=== PATIENT | male | born 1960 | race American Indian/Alaskan Native ===

== ENCOUNTER 2016-10-06 13:23 | Inpatient (IN) | payer MEDICAID ==
[2016-10-06 13:23] VITALS: BMI 24.3
[2016-10-06] MEDS ORDERED: Albuterol-Ipratrop 3 mg / 0.5 (3 ml) UD ONE ×2 (13:35→14:53)
--- NOTE | 2016-10-06 14:05 | C.PDOC ---
History Of Present Illness 55-year-old male, PMHx includes Arthritis, Asthma, Bronchitis, COPD, Hypertension, Hypercholesterolemia, and Pulmonary Embolism, presents to the emergency department with complaints of Asthma exacerbation. Patient states he had a duoneb prior to arrival. States he feels like his "throat is closing up" Patient reports he uses medication, that he did not have at the time. Denies nausea/vomiting, fevers, chills, chest pain, back pain or any other associated symptoms. No other complaints at this time. Time Seen by Provider: 10/06/16 13:48 Chief Complaint (Nursing): Shortness Of Breath History Per: Patient History/Exam Limitations: no limitations Onset/Duration Of Symptoms: Hrs Current Symptoms Are (Timing): Still Present Past Medical History Reviewed: Historical Data, Nursing Documentation, Vital Signs Vital Signs: Last Vital Signs Temp 98 F 10/06/16 13:25 Pulse 81 10/06/16 15:15 Resp 12 10/06/16 15:15 BP 140/72 10/06/16 15:15 Pulse Ox 99 10/06/16 16:14 - Medical History PMH: Arthritis, Asthma, Bronchitis, COPD, HTN, Hypercholesterolemia, Pulmonary Embolism Denies: Alzheimer's Disease, Anemia, Atrial Fibrillation, CAD, Cardia Arrhythmia, CHF, Dementia, Emphysema, HIV, Hyperthyroidism, Hypothyroidism, Kidney Stones, Migraine, Mitral Valve Prolapse, Multiple Sclerosis, Parkinson's Disease, Peripheral Edema, Pneumonia, Chronic Kidney Disease, Seizures, Sickle Cell Disease, Sleep Apnea, TIA Surgical History: Hernia Repair Denies: Pacemaker - [facility] Procedures INSERTION OF INTRALUM DEV INTO INF VENA CAVA, PERC APPROACH (08/29/15) INTRODUCE OF OTH THERAP SUBST INTO RESP TRACT, VIA OPENING (06/07/15) INTRODUCTION OF SERUM/TOX/VACCINE INTO MUSCLE, PERC APPROACH (09/11/16) NEBULIZER THERAPY (02/27/15) Family History: States: Unknown Family Hx - Social History Hx Tobacco Use: Yes Hx Alcohol Use: Yes (occasional) Hx Substance Use: Yes (heroin) - Immunization History Hx Tetanus Toxoid Vaccination: Yes Hx Influenza Vaccination: Yes Hx Pneumococcal Vaccination: Yes Review Of Systems Except As Marked, All Systems Reviewed And Found Negative. Constitutional: Negative for: Fever, Chills Cardiovascular: Negative for: Chest Pain, Palpitations Respiratory: Positive for: Shortness of Breath Gastrointestinal: Negative for: Nausea, Vomiting Musculoskeletal: Negative for: Back Pain Skin: Negative for: Rash Neurological: Negative for: Weakness, Numbness, Headache, Dizziness Physical Exam - Physical Exam Appears: Non-toxic, No Acute Distress Skin: Warm, Dry, No Rash Head: Atraumatic, Normacephalic Eye(s): bilateral: Normal Inspection, PERRL Nose: Normal Oral Mucosa: Moist Lips: Normal Appearing Neck: Normal ROM Chest: Symmetrical Cardiovascular: Rhythm Regular Respiratory: Other (B/L EXP WHEEZE) Extremity: Normal ROM Neurological/Psych: Oriented x3, Normal Speech ED Course And Treatment - Laboratory Results Result Diagrams: 10/06/16 14:57 10/06/16 14:57 ECG: Interpreted By Me ECG Rhythm: Sinus Rhythm ECG Interpretation: Normal Rate From EC O2 Sat by Pulse Oximetry: 99 Pulse Ox Interpretation: Normal Progress - Re-Evaluation Re-evaluation Note: 10/06/16 16:08 93%RA. MILD IMPROVE. PMD @ [facility] 10/06/16 16:41 D/W DR GARCIA [employer] WILL ADMIT - Data Reviewed Data Reviewed: Lab, Diagnostic imaging, Old records - Continuity of Care Discussed patient case with:: Patient, On-call PMD-pt unassigned Disposition Counseled Patient/Family Regarding: Studies Performed, Diagnosis - Disposition Disposition: HOSPITALIZED Disposition Time: 16:41 Condition: STABLE - POA Present On Arrival: None - Clinical Impression Clinical Impression: COPD with exacerbation, Dyspnea, Pneumonia - Scribe Statement The provider has reviewed the documentation as recorded by the Brittani Maguire All medical record entries made by the Nyaibe were at my direction and personally dictated by me. I have reviewed the chart and agree that the record accurately reflects my personal performance of the history, physical exam, medical decision making, and the department course for this patient. I have also personally directed, reviewed, and agree with the discharge instructions and disposition. Decision To Admit - Pt Status Changed To: Hospital Disposition Of: Observation - . Bed Request Type: Regular Admitting Physician: Sandi Patterson Patient Diagnosis: COPD with exacerbation, Dyspnea, Pneumonia
[2016-10-06] MEDS ORDERED: MethylPREDNISolone 40 mg Vial ONE (14:51)
[2016-10-06] MEDS: Albuterol-Ipratrop 3 mg / 0.5 (3 ml) UD IH SCH ×2 (14:56→15:13)
--- NOTE | 2016-10-06 15:02 | RAD ---
HISTORY: SOB COMPARISON: Chest x-ray performed 06/30/16 TECHNIQUE: Chest, one view. FINDINGS: LUNGS: Mild bibasilar opacity likely subsegmental atelectasis. Please note that chest x-ray has limited sensitivity for the detection of pulmonary masses. PLEURA: No significant pleural effusion identified. No definite pneumothorax . CARDIOVASCULAR: The cardiomediastinal silhouette appears within normal limits of size. OSSEOUS STRUCTURES: No acute osseous abnormality identified. VISUALIZED UPPER ABDOMEN: Unremarkable. OTHER FINDINGS: None. IMPRESSION: Mild right basilar opacity likely subsegmental atelectasis.
[2016-10-06 15:10] LABS: BASO % 0.2 % (0.0-2.0); EOS # 0.1 K/uL (0.0-0.7); EOS % 0.8 % (0.0-4.0); HEMATOCRIT 33.5 % (35.0-51.0); LYMPH % 12.3 % (20.0-40.0); MEAN CORPUSCULAR HEMOGLOBIN 27.7 pg (27.0-31.0); MEAN CORPUSCULAR HGB CONC 31.8 g/dL (33.0-37.0); MEAN PLATELET VOLUME 9.1 fL (7.2-11.7); MONO # 0.7 K/uL (0.0-0.8); MONO % 8.7 % (0.0-10.0)
[2016-10-06 15:11] LABS: WHITE BLOOD COUNT 8.2 K/uL (4.8-10.8)
[2016-10-06 15:12] LABS: CHLORIDE 95 mmol/L (98-107); POTASSIUM 4.2 mmol/L (3.6-5.2); SODIUM 139 mmol/L (132-148)
[2016-10-06 15:14] LABS: BILIRUBIN,TOTAL 0.2 mg/dL (0.2-1.3); CARBON DIOXIDE 31 mmol/L (22-30); GFR AFRICAN-AMERICAN > 60
[2016-10-06 15:15] LABS: ALB/GLOB RATIO 1.3 (1.0-2.1); ALKALINE PHOSPHATASE 72 U/L (38-126); ALT/SGPT 18 U/L (21-72); AST/SGOT 20 U/L (17-59); BLOOD UREA NITROGEN 19 mg/dL (9-20); CALCIUM 8.8 mg/dl (8.6-10.4); GLUCOSE,RANDOM 108 mg/dL (75-110); TOTAL PROTEIN 7.3 g/dL (6.3-8.3)
[2016-10-06] MEDS ORDERED: cefTRIAXone IV 1 gm in Dextros 50 ML IV STA (16:10)
[2016-10-06] MEDS ORDERED: Azithromycin 500 MG in Sodium Chloride 0.9% 250 ML IV STA (16:10)
[2016-10-06] MEDS ORDERED: cefTRIAXone IV 1 gm in Dextros 50 ML IVPB ONE (16:30)
[2016-10-06] MEDS ORDERED: Azithromycin 500mg/250ML NS 250 ML IVPB ONE (16:31)
[2016-10-06] MEDS: Albuterol-Ipratrop 3 mg / 0.5 (3 ml) UD INH SCH (19:26)
[2016-10-06] MEDS: Fluticasone-Salmeterol 100-50mcg Diskus INH SCH (19:29)
[2016-10-07] MEDS: Albuterol-Ipratrop 3 mg / 0.5 (3 ml) UD INH SCH ×4 (02:01→19:29)
--- NOTE | 2016-10-07 11:38 | CP.PCM.PN ---
Subjective - Date & Time of Evaluation Date of Evaluation: 10/07/16 Time of Evaluation: 11:45 - Subjective Subjective: H&P dictated # [id number] Objective - Vital Signs/Intake and Output Vital Signs (last 24 hours): Temp Pulse Resp BP Pulse Ox 97.4 F L 66 20 160/85 H 97 10/07/16 08:00 10/07/16 08:00 10/07/16 08:00 10/07/16 08:00 10/07/16 08:00 - Medications Medications: Current Medications Albuterol/Ipratropium (Duoneb 3 Mg/0.5 Mg (3 Ml) Ud) 3 ml INH RQ6 [facility] Last Admin: 10/07/16 07:39 Dose: 3 ml Amlodipine Besylate (Norvasc) 5 mg PO DAILY [facility] Last Admin: 10/07/16 10:15 Dose: 5 mg Apixaban (Eliquis) 5 mg PO BID [facility] Last Admin: 10/07/16 10:14 Dose: 5 mg Hydralazine HCl (Apresoline) 10 mg IVP STAT [facility] Pneumococcal Polyvalent Vaccine (Pneumovax 23 Vaccine) 0.5 ml IM .ONCE ONE Stop: 10/08/16 10:01 Fluticasone/Salmeterol (Advair Diskus 100/50) 1 puff INH RQ12 [facility] Last Admin: 10/06/16 19:29 Dose: Not Given
--- NOTE | 2016-10-07 11:46 | CP.PCM.CON ---
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 The patient notes to chest wall tightness and shortness of breath which he reports are similar to prior COPD exacerbations. He continued to smoke. He notes to improvement in his symptoms with nebulizer treatments. He is compliant with his anticoagulation. Past medical history: Recurrent DVT/PE, COPD Past surgical history: None Family history: Denies hematologic and oncologic problems Social history: 1ppd x 40 years, denies tobacco. Allergies: NKA Review of systems including HEENT, cardiovascular, respiratory, gastrointestinal , genitourinary, musculoskeletal, dermatologic, neurologic, and psychiatric are negative unless mentioned in the HPI. Past Patient History - Infectious Disease Hx of Infectious Diseases: None - Past Medical History & Family History Past Medical History?: Yes - Past Social History Smoking Status: Former Smoker - CARDIAC Hx Atrial Fibrillation: No Hx Cardia Arrhythmia: No Hx Congestive Heart Failure: No Hx Hypercholesterolemia: Yes Hx Hypertension: Yes Hx Mitral Valve Prolapse: No Hx Pacemaker: No Hx Peripheral Edema: No - PULMONARY Hx Asthma: Yes Hx Bronchitis: Yes Hx Chronic Obstructive Pulmonary Disease (COPD): Yes Hx Emphysema: No Hx Pneumonia: No Hx Pulmonary Embolism: Yes Hx Sleep Apnea: No - NEUROLOGICAL Hx Alzheimer's Disease: No Hx Dementia: No Hx Migraine: No Hx Multiple Sclerosis: No Hx Parkinson's Disease: No Hx Seizures: No Hx Transient Ischemic Attacks (TIA): No - HEENT Hx HEENT Problems: No - RENAL Hx Chronic Kidney Disease: No Hx Kidney Stones: No - ENDOCRINE/METABOLIC Hx Hyperthyroidism: No Hx Hypothyroidism: No - HEMATOLOGICAL/ONCOLOGICAL Hx Anemia: No Hx Human Immunodeficiency Virus (HIV): No Hx Sickle Cell Disease: No - INTEGUMENTARY Hx Dermatological Problems: No Other/Comment: skin very dry - MUSCULOSKELETAL/RHEUMATOLOGICAL Hx Falls: No - GASTROINTESTINAL Hx Gastrointestinal Disorders: Yes Other/Comment: hernia repair- left - GENITOURINARY/GYNECOLOGICAL Hx Genitourinary Disorders: No - PSYCHIATRIC Hx Substance Use: No - SURGICAL HISTORY Hx Surgeries: Yes Hx Herniorrhaphy: Yes (left) Other/Comment: collapsed lung - ANESTHESIA Hx Anesthesia: Yes Hx Anesthesia Reactions: No Hx Malignant Hyperthermia: No Meds Allergies/Adverse Reactions: Allergies Allergy/AdvReac Type Severity Reaction Status Date / Time No Known Allergies Allergy Verified 10/06/16 13:24 - Medications Medications: Current Medications Albuterol/Ipratropium (Duoneb 3 Mg/0.5 Mg (3 Ml) Ud) 3 ml INH RQ6 [facility] Last Admin: 10/07/16 07:39 Dose: 3 ml Amlodipine Besylate (Norvasc) 5 mg PO DAILY [facility] Last Admin: 10/07/16 10:15 Dose: 5 mg Apixaban (Eliquis) 5 mg PO BID [facility] Last Admin: 10/07/16 10:14 Dose: 5 mg Hydralazine HCl (Apresoline) 10 mg IVP STAT [facility] Pneumococcal Polyvalent Vaccine (Pneumovax 23 Vaccine) 0.5 ml IM .ONCE ONE Stop: 10/08/16 10:01 Fluticasone/Salmeterol (Advair Diskus 100/50) 1 puff INH RQ12 [facility] Last Admin: 10/06/16 19:29 Dose: Not Given Physical Exam - Head Exam Head Exam: ATRAUMATIC - Eye Exam Eye Exam: Normal appearance - ENT Exam ENT Exam: Mucous Membranes Dry - Respiratory Exam Respiratory Exam: Wheezes - Cardiovascular Exam Cardiovascular Exam: +S1, +S2 - GI/Abdominal Exam GI & Abdominal Exam: Normal Bowel Sounds - Extremities Exam Extremities exam: Positive for: pedal edema - Neurological Exam Neurological exam: Oriented x3 - Psychiatric Exam Psychiatric exam: Normal Affect, Normal Mood - Skin Skin Exam: Warm Results - Vital Signs Recent Vital Signs: Last Vital Signs Temp 97.4 F L 10/07/16 08:00 Pulse 66 10/07/16 08:00 Resp 20 10/07/16 08:00 BP 160/85 H 10/07/16 08:00 Pulse Ox 97 10/07/16 08:00 - Labs Result Diagrams: 10/06/16 14:57 10/06/16 14:57 Labs: Laboratory Results - last 24 hr 10/07/16 07:06 POC Glucose (mg/dL) 122 H Assessment & Plan (1) Deep vein thrombosis Assessment and Plan: recurrent with PE IVC filter placed in 2016 B/L DVT in 08/2016 currently on Eliquis for life no factor V leiden or prothrombin gene mutation, no antiphospholipid Ab positivity Status: Acute (2) Anemia Assessment and Plan: prior work up consistent with chronic disease Thank you for this interesting consult. Status: Acute
[2016-10-07] MEDS: MethylPREDNISolone 40 mg Vial IVP SCH ×2 (13:19→21:12)
--- NOTE | 2016-10-07 13:39 | RAD ---
HISTORY: f/u ? infiltrate vs atelectasis COMPARISON: Chest x-ray performed 10/06/16, CTA chest performed 08/29/15 TECHNIQUE: Chest PA and lateral FINDINGS: LUNGS: Subtle retrocardiac opacity may reflect atelectasis or pneumonia. Please note that chest x-ray has limited sensitivity for the detection of pulmonary masses. PLEURA: No significant pleural effusion identified. No definite pneumothorax . CARDIOVASCULAR: Heart size appears within normal limits. Atherosclerotic calcifications of the aorta. OSSEOUS STRUCTURES: No acute osseous abnormality identified. VISUALIZED UPPER ABDOMEN: Unremarkable. OTHER FINDINGS: None. IMPRESSION: Subtle retrocardiac opacity may reflect atelectasis or pneumonia. Recommend CT follow-up upon completion of treatment in order to ensure complete resolution.
[2016-10-07] MEDS: Fluticasone-Salmeterol 100-50mcg Diskus INH SCH ×2 (13:50→19:28)
[2016-10-07] MEDS: Tiotropium 18 mcg Cap For Inhalation IH SCH (13:50)
--- NOTE | 2016-10-07 18:34 | HP ---
CHIEF COMPLAINT: Progressive worsening of shortness of breath associated with a cough with clear sputum, progressively getting worse over the past 2 days. HISTORY OF PRESENT ILLNESS: The patient is a 55-year-old male with a history of arthritis, COPD, hypertension, hyperlipidemia, prior history of bilateral DVT , PE, status post IVC filter placement, who was admitted to [facility] 2 months ago for recurrent DVTs, was started on Eliquis for DVT. The patient was readmitted to [facility] on 09/11 for COPD exacerbation. He was found to be having bilateral lower extremity DVT and he was given 4 doses of therapeutic doses of Lovenox and Eliquis was held. Once the patient is stabilized, the patient was switched back to Eliquis and discharged on . The patient was evaluated in [facility] on 10/04 for possible altered mental status from substance abuse, and on 10/03, the patient was placed on observation in [place] and the patient was observed. Once the patient's mental status improved after his treatment, the patient was discharged home and advised the patient to follow up with PMD. The patient returning to [facility] ED yesterday for worsening symptoms of shortness of breath and cough for the past 2 days. In the ED, the patient was given nebulizer treatment, and he was still getting out of breath on exertion. The patient is being admitted for further management. Next, when I examined the patient, he denies any headaches, dizziness. Denies any chest pain, but complaining of shortness of breath on exertion and on walking to the bathroom. Denies any fever, but complaining of cough with whitish sputum. Denies any other associated symptoms. Denies any nausea, vomiting, abdominal pain, diarrhea or constipation. Denies any urinary complaints. Denies any other neurologic symptoms. PAST MEDICAL HISTORY: COPD, hypertension, history of arthritis, bilateral DVT, PE, and recurrent DVT. PAST SURGICAL HISTORY: Had a hernia repair and IVC filter placement. FAMILY HISTORY: Osteoarthritis in mother. PERSONAL HISTORY: He is single, not having any children, currently unemployed and disabled secondary to his hip osteoarthritis, uses a walker to walk around. SOCIAL HISTORY: She smokes 1 pack per day for the past 40 years. Does not drink alcohol, but uses heroin, last use was prior to coming to the hospital. ALLERGIES: No known drug allergies. HOME MEDICATIONS: Include prednisone 5 mg daily, Spiriva 18 mcg daily, Levaquin , Advair 1 puff inhalation, Eliquis 5 mg p.o. b.i.d. REVIEW OF SYSTEMS: As described in history of present illness. All other systems reviewed and were found to be negative. PHYSICAL EXAMINATION: GENERAL: Middle-aged male lying in bed in no acute distress. VITAL SIGNS: Blood pressure 151/88, pulse 72, respirations 20, temperature 98.1 degrees Fahrenheit, O2 sats 95% on 2 liters nasal cannula. HEENT: Pupils equal, round, reacting to light and accommodation. Extraocular muscles intact. No icterus, no pallor. No oral thrush. No pharyngeal congestion. NECK: Supple. No JVD. LUNGS: Bilateral vesicular breath sounds, decreased breath sounds at bases. Occasional wheezing heard. CARDIOVASCULAR: S1, S2 present, regular. ABDOMEN: Soft, nontender. Bowel sounds present. No guarding, no rigidity, no rebound tenderness noted. CENTRAL NERVOUS SYSTEM: Alert, awake, oriented x 3. No focal deficits noted. EXTREMITIES: 1-2+ pitting edema. Palpable peripheral pulses. LABORATORY DATA: Labs done from ED: WBC 8.2, hemoglobin 10.7, hematocrit 33.5 , platelets 298. Sodium 139, potassium 4.2, chloride 95, bicarbonate 31, BUN 19 , creatinine 0.9, glucose 108, calcium 8.8, AST 20, ALT 18, alkaline phosphatase 72. Cardiac enzymes x 1 negative. BNP is 512. Total protein 7.3, albumin 4.2, globulin 3.1. Chest x-ray: Mild right basilar opacity, likely subsegmental atelectasis. EKG from the ED shows normal sinus rhythm at 77 beats per minute, LVH, and poor R-wave progression. ASSESSMENT AND PLAN: Middle-aged male with history of COPD, hypertension, arthritis, bilateral DVT and PE admitted to [facility] for recurrent PE, on Eliquis and prednisone tapering doses, came into the ED for worsening symptoms of shortness of breath on exertion and the patient is being admitted for COPD exacerbation. The patient underwent echocardiogram at [facility] on 09/11, which shows left ventricle is normal size, normal left ventricular wall thickness, normal LV segmental wall motion, left ventricle systolic function is normal, ejection fraction of 65%-70%, left ventricular diastolic function is normal, mild to moderate tricuspid regurgitation, mild to moderate pulmonary hypertension. 1. Chronic obstructive pulmonary disease exacerbation. 2. Recurrent DVT on Eliquis. 3. History of hypertension. 4. History of arthritis. 5. Lower extremity edema with normal LV function, mild to moderate pulmonary hypertension. 6. Substance abuse. PLAN: The patient is being admitted to the regular floor. The patient received Solu-Medrol and antibiotics in the ED. Chest x-ray is most likely consistent with atelectasis. We will repeat a chest x-ray. I do not think patient has any infiltrate or pneumonia, but will repeat a chest x-ray and follow accordingly. I will obtain pulmonary evaluation to determine the need for home oxygen. We will obtain physical therapy evaluation. We will continue with Norvasc 5 mg daily for high blood pressure. Continue with Eliquis. We will obtain hematology evaluation. We will add further recommendation as his clinical course progresses. Sandi Patterson MD cc: [id number] TT: 10/07/2016 18:33:46 mn [email or web address]
[2016-10-07 18:47] LABS: URINE BILIRUBIN NEGATIVE (NEGATIVE); URINE BLOOD NEGATIVE (NEGATIVE); URINE COLOR Straw (YELLOW); URINE GLUCOSE (UA) NORMAL (Normal); URINE KETONE NEGATIVE (NEGATIVE); URINE LEUKOCYTE ESTERASE NEG Leu/uL (Negative); URINE PROTEIN NEGATIVE (NEGATIVE); URINE UROBILINOGEN NORMAL mg/dL (0.2-1.0); WBC URINE < 1 /hpf (0-5)
[2016-10-08] MEDS: Albuterol-Ipratrop 3 mg / 0.5 (3 ml) UD INH SCH ×4 (01:30→19:52)
[2016-10-08] MEDS: MethylPREDNISolone 40 mg Vial IVP SCH ×2 (09:36→21:25)
[2016-10-08] MEDS ORDERED: Pneumococcal 23-Valent Vaccine IM ONE (10:00)
[2016-10-08] MEDS: Fluticasone-Salmeterol 100-50mcg Diskus INH SCH (10:28)
[2016-10-08] MEDS: Tiotropium 18 mcg Cap For Inhalation IH SCH (10:29)
[2016-10-08] MEDS: Azithromycin 500 MG in Sodium Chloride 0.9% 250 ML IVPB SCH (10:41)
[2016-10-08] MEDS: Piperacillin/Tazobact 3.375 GM in Sodium Chloride 100 ML IVPB SCH ×2 (10:41→18:10)
[2016-10-08] MEDS ORDERED: Iodixanol 320 mg/ml 150 ml Bottle IV ONE (11:57)
--- NOTE | 2016-10-08 12:16 | CP.PCM.PN ---
Subjective - Date & Time of Evaluation Date of Evaluation: 10/08/16 Time of Evaluation: 12:00 - Subjective Subjective: Progress note dictated # [id number] Objective - Vital Signs/Intake and Output Vital Signs (last 24 hours): Temp Pulse Resp BP Pulse Ox 98.1 F 68 18 132/80 98 10/08/16 08:00 10/08/16 08:00 10/08/16 08:00 10/08/16 10:39 10/08/16 08:00 Intake and Output: 10/08/16 10/08/16 06:59 18:59 Intake Total 300 Balance 300 - Medications Medications: Current Medications Albuterol/Ipratropium (Duoneb 3 Mg/0.5 Mg (3 Ml) Ud) 3 ml INH RQ6 [facility] Last Admin: 10/08/16 07:50 Dose: 3 ml Amlodipine Besylate (Norvasc) 5 mg PO DAILY [facility] Last Admin: 10/08/16 09:35 Dose: 5 mg Apixaban (Eliquis) 5 mg PO BID [facility] Last Admin: 10/08/16 09:35 Dose: 5 mg Furosemide (Lasix) 20 mg IVP DAILY [facility] Last Admin: 10/08/16 10:39 Dose: 20 mg Azithromycin 500 mg/ Sodium (Chloride) 250 mls @ 250 mls/hr IVPB DAILY@1030 [facility] Last Admin: 10/08/16 10:41 Dose: 250 mls/hr Piperacillin Sod/Tazobactam (Sod 3.375 gm/ Sodium Chloride) 100 mls @ 200 mls/ hr IVPB Q8H [facility] Last Admin: 10/08/16 10:41 Dose: 200 mls/hr Methylprednisolone (Solu-Medrol) 40 mg IVP Q12 [facility] Last Admin: 10/08/16 09:36 Dose: 40 mg Tiotropium [place] (Spiriva) 18 mcg IH RQD [facility] Last Admin: 10/08/16 10:29 Dose: 18 mcg
--- NOTE | 2016-10-08 12:43 | CARD ---
APPROVED REPORT EKG Measurement Heart [id number] <Conclusion> Normal sinus rhythm Possible Left atrial enlargement Left anterior fascicular block Left ventricular hypertrophy Abnormal ECG
--- NOTE | 2016-10-08 13:47 | CP.PCM.CON ---
History of Present Illness - History of Present Illness History of Present Illness: Pt is a 55yo M with a PMH of arthritus, COPD, HtN, HLD, bilateral DVT, PE, collapsed lung, kidney failure, ulcer, and IVC filter placement. Pt initialy presented for a 2 day hx of productive cough with clear sputum. Symptoms of SOB with cough persisted through nebulizer treatments. Reason for consultation : COPD exacerbation, h/o PE and h/o DVT Pt seen and examined at bedside. Pt complained of some SOB with exertion, leg swelling, increased urinary frequency. Pt denied cough, sputum, chest pain, palpitations, nausea, vomiting, changes in bowl habits, hematauria, change in urine color, and leg pain. PMH: arthritus, COPD, HtN, HLD, bilateral DVT, PE, collapsed lung, kidney failure, ulcer PSH: IVC filter placement, hernia repair Social: Opiate substance abuse, former smoker Review of Systems - Constitutional Constitutional: As Per HPI - Cardiovascular Cardiovascular: As Per HPI - Respiratory Respiratory: As Per HPI - Gastrointestinal Gastrointestinal: As Per HPI - Genitourinary Genitourinary: As Per HPI Past Patient History - Infectious Disease Hx of Infectious Diseases: None - Past Medical History & Family History Past Medical History?: Yes - Past Social History Smoking Status: Former Smoker - CARDIAC Hx Atrial Fibrillation: No Hx Cardia Arrhythmia: No Hx Congestive Heart Failure: No Hx Hypercholesterolemia: Yes Hx Hypertension: Yes Hx Mitral Valve Prolapse: No Hx Pacemaker: No Hx Peripheral Edema: No - PULMONARY Hx Asthma: Yes Hx Bronchitis: Yes Hx Chronic Obstructive Pulmonary Disease (COPD): Yes Hx Emphysema: No Hx Pneumonia: No Hx Pulmonary Embolism: Yes Hx Sleep Apnea: No - NEUROLOGICAL Hx Alzheimer's Disease: No Hx Dementia: No Hx Migraine: No Hx Multiple Sclerosis: No Hx Parkinson's Disease: No Hx Seizures: No Hx Transient Ischemic Attacks (TIA): No - HEENT Hx HEENT Problems: No - RENAL Hx Chronic Kidney Disease: No Hx Kidney Stones: No - ENDOCRINE/METABOLIC Hx Hyperthyroidism: No Hx Hypothyroidism: No - HEMATOLOGICAL/ONCOLOGICAL Hx Anemia: No Hx Human Immunodeficiency Virus (HIV): No Hx Sickle Cell Disease: No - INTEGUMENTARY Hx Dermatological Problems: No Other/Comment: skin very dry - MUSCULOSKELETAL/RHEUMATOLOGICAL Hx Falls: No - GASTROINTESTINAL Hx Gastrointestinal Disorders: Yes Other/Comment: hernia repair- left - GENITOURINARY/GYNECOLOGICAL Hx Genitourinary Disorders: No - PSYCHIATRIC Hx Substance Use: No - SURGICAL HISTORY Hx Surgeries: Yes Hx Herniorrhaphy: Yes (left) Other/Comment: collapsed lung - ANESTHESIA Hx Anesthesia: Yes Hx Anesthesia Reactions: No Hx Malignant Hyperthermia: No Meds Allergies/Adverse Reactions: Allergies Allergy/AdvReac Type Severity Reaction Status Date / Time No Known Allergies Allergy Verified 10/06/16 13:24 - Medications Medications: Current Medications Albuterol/Ipratropium (Duoneb 3 Mg/0.5 Mg (3 Ml) Ud) 3 ml INH RQ6 [facility] Last Admin: 10/08/16 13:24 Dose: 3 ml Amlodipine Besylate (Norvasc) 5 mg PO DAILY [facility] Last Admin: 10/08/16 09:35 Dose: 5 mg Apixaban (Eliquis) 5 mg PO BID [facility] Last Admin: 10/08/16 09:35 Dose: 5 mg Furosemide (Lasix) 20 mg IVP DAILY [facility] Last Admin: 10/08/16 10:39 Dose: 20 mg Azithromycin 500 mg/ Sodium (Chloride) 250 mls @ 250 mls/hr IVPB DAILY@1030 [facility] Last Admin: 10/08/16 10:41 Dose: 250 mls/hr Piperacillin Sod/Tazobactam (Sod 3.375 gm/ Sodium Chloride) 100 mls @ 200 mls/ hr IVPB Q8H [facility] Last Admin: 10/08/16 10:41 Dose: 200 mls/hr Methylprednisolone (Solu-Medrol) 40 mg IVP Q12 [facility] Last Admin: 10/08/16 09:36 Dose: 40 mg Tiotropium [place] (Spiriva) 18 mcg IH RQD [facility] Last Admin: 10/08/16 10:29 Dose: 18 mcg Physical Exam - Constitutional Appears: Well, No Acute Distress - Head Exam Head Exam: ATRAUMATIC, NORMOCEPHALIC - Eye Exam Eye Exam: EOMI, PERRL - ENT Exam ENT Exam: Mucous Membranes Moist - Respiratory Exam Respiratory Exam: Rhonchi (LLL), NORMAL BREATHING PATTERN. absent: Decreased Breath Sounds, Clear to Auscultation Bilateral, Prolonged Expiratory Phase, Rales, Wheezes, Respiratory Distress - Cardiovascular Exam Cardiovascular Exam: +S1, +S2. absent: Systolic Murmur - Extremities Exam Extremities exam: Positive for: pedal edema, pedal pulses present - Expanded Upper Extremities Exam Left Vascular exam: radial pulse Right Vascular exam: radial pulse - Neurological Exam Neurological exam: Alert, Oriented x3 - Psychiatric Exam Psychiatric exam: Normal Affect, Normal Mood - Skin Skin Exam: Dry, Intact, Normal Color, Warm Results - Vital Signs Recent Vital Signs: Last Vital Signs Temp 98.1 F 10/08/16 08:00 Pulse 68 10/08/16 08:00 Resp 18 10/08/16 08:00 BP 132/80 10/08/16 10:39 Pulse Ox 98 10/08/16 08:00 - Labs Result Diagrams: 10/06/16 14:57 10/06/16 14:57 Assessment & Plan (1) COPD with exacerbation Assessment and Plan: 10-07-16 CXR retro-cardiac opacity reflect atelectasis or pneumonia, no plural effusion, no pnumothorax, CT f/u recommended at end of treatment 10-06-16 Blood and urine cultures show no growth Ordered CT angio; will follow results Continue Duoneb, Lasix, Solumedrol, Tiotropium Discontinue inhaled steroid Begin Azithromycin and Zosyn Continue Eliquis Status: Chronic (2) Hospital acquired PNA Status: Acute (3) DVT prophylaxis Status: Acute
--- NOTE | 2016-10-08 13:52 | CT ---
PROCEDURE: CT Chest with contrast (Pulmonary Angiogram) HISTORY: r/o PE COMPARISON: Comparison is made to the previous study dated 08/29/2015 TECHNIQUE: Axial computed tomography images were obtained of the chest in the pulmonary arterial phase of enhancement. Coronal and sagittal reformatted images were created and reviewed. MIPS images in coronal and sagittal planes were also obtained. Intravenous contrast dose: 100 mL of Visipaque Radiation dose: Total exam DLP = 450.93 mGy-cm. This CT exam was performed using one or more of the following dose reduction techniques: Automated exposure control, adjustment of the mA and/or kV according to patient size, and/or use of iterative reconstruction technique. FINDINGS: PULMONARY ARTERIES: Unremarkable. No pulmonary embolism. AORTA: No acute findings. No thoracic aortic aneurysm. LUNGS: Mild emphysematous changes predominant in the upper lobes are noted. No evidence of acute pathology in the lungs. PLEURAL SPACES: Unremarkable. No effusion or pneuomothorax. HEART: The heart is upper normal/ mildly enlarged in size. LYMPH NODES: No lymphadenopathy. BONES, CHEST WALL: Unremarkable. No fracture or destructive lesion OTHER FINDINGS: Mild diffuse esophageal mucosal thickening suspicious for esophagitis. IMPRESSION: No evidence of pulmonary embolus. No evidence of acute pulmonary disease. Mildly enlarged/upper normal limits heart size. Mild diffuse esophageal mucosal thickening suspicious for esophagitis.
--- NOTE | 2016-10-08 20:44 | PN ---
DATE: 10/08/2016 The patient was seen and examined at bedside. The patient is feeling better, less shortness of breat h and cough is better. Denies any other new complaints. PHYSICAL EXAMINATION: GENERAL: Middle-aged male lying in bed in no acute distress. VITAL SIGNS: Blood pressure 132/80, pulse 68, respirations 20, temperature 98.1 degrees Fahrenheit, O2 sats 98% on 3 liters nasal cannula. HEENT: Pupils equal, round, and reacting to light and accommodation. Extraocular muscles intact. N o icterus, no pallor. No oral thrush. No pharyngeal congestion. NECK: Supple, no JVD. LUNGS: Bilateral vesicular breath sounds. Occasional wheezing. Decreased breath sounds at bases. CARDIOVASCULAR: S1, S2 present, regular. ABDOMEN: Soft, nontender. Bowel sounds present. No guarding, no rigidity, no rebound tenderness no jenn. CENTRAL NERVOUS SYSTEM: Alert, awake, oriented x 3. No focal deficits noted. EXTREMITIES: Trace edema. MEDICATIONS: DuoNeb, Norvasc 5 mg daily, Eliquis 5 mg p.o. b.i.d., azithromycin 500 mg p.o. daily, L asix 20 mg daily, Solu-Medrol 40 mg IV push q. 12 hours, Zosyn 3.375 gram IV q. 8 hours, Spiriva. LABORATORY DATA: His drug screen positive for opiates. CT chest done from this morning shows no wolfgang dence of pulmonary embolus, no evidence of acute pulmonary disease, mildly enlarged upper normal limi ts heart size, mild diffuse esophageal mucosal thickening suspicious for esophagitis. ASSESSMENT AND PLAN: Middle-aged male with chronic obstructive pulmonary disease exacerbation, hyper tension, recurrent bilateral DVT, history of PE on long-term anticoagulation. CT angio is negative f or any PE. The patient is on Zosyn and azithromycin. We will continue with nebulizer treatments and Solu-Medrol. Pulmonary consult appreciated. Hematology consults appreciated. We will continue wit h other current medication. micrographics services supervisor for discharge planning. Sandi Patterson MD cc: [id number] TT: 10/08/2016 20:44:33 Confirmation # [id number] Dictation # [id number]
[2016-10-09] MEDS: Albuterol-Ipratrop 3 mg / 0.5 (3 ml) UD INH SCH ×4 (01:17→19:04)
[2016-10-09] MEDS: Piperacillin/Tazobact 3.375 GM in Sodium Chloride 100 ML IVPB SCH ×3 (02:05→18:01)
[2016-10-09] MEDS: Tiotropium 18 mcg Cap For Inhalation IH SCH (08:03)
[2016-10-09] MEDS: MethylPREDNISolone 40 mg Vial IVP SCH ×2 (09:50→21:32)
[2016-10-09] MEDS: Azithromycin 500 MG in Sodium Chloride 0.9% 250 ML IVPB SCH (09:51)
--- NOTE | 2016-10-09 10:41 | CP.PCM.PN ---
Subjective - Date & Time of Evaluation Date of Evaluation: 10/09/16 Time of Evaluation: 10:40 - Subjective Subjective: Progress note dictated #[id number] Objective - Vital Signs/Intake and Output Vital Signs (last 24 hours): Temp Pulse Resp BP Pulse Ox 98.5 F 80 20 119/61 98 10/09/16 08:00 10/09/16 08:00 10/09/16 08:00 10/09/16 09:50 10/09/16 08:00 Intake and Output: 10/09/16 10/09/16 06:59 18:59 Intake Total 300 Output Total 1500 Balance -1200 - Medications Medications: Current Medications Albuterol/Ipratropium (Duoneb 3 Mg/0.5 Mg (3 Ml) Ud) 3 ml INH RQ6 [facility] Last Admin: 10/09/16 08:03 Dose: 3 ml Amlodipine Besylate (Norvasc) 5 mg PO DAILY [facility] Last Admin: 10/09/16 09:49 Dose: 5 mg Apixaban (Eliquis) 5 mg PO BID [facility] Last Admin: 10/09/16 09:49 Dose: 5 mg Furosemide (Lasix) 20 mg IVP DAILY [facility] Last Admin: 10/09/16 09:50 Dose: 20 mg Azithromycin 500 mg/ Sodium (Chloride) 250 mls @ 250 mls/hr IVPB DAILY@1030 [facility] Last Admin: 10/09/16 09:51 Dose: 250 mls/hr Piperacillin Sod/Tazobactam (Sod 3.375 gm/ Sodium Chloride) 100 mls @ 200 mls/ hr IVPB Q8H [facility] Last Admin: 10/09/16 09:53 Dose: 200 mls/hr Methylprednisolone (Solu-Medrol) 40 mg IVP Q12 [facility] Last Admin: 10/09/16 09:50 Dose: 40 mg Pneumococcal Polyvalent Vaccine (Pneumovax 23 Vaccine) 0.5 ml IM .ONCE ONE Stop: 10/10/16 10:01 Tiotropium [place] (Spiriva) 18 mcg IH RQD [facility] Last Admin: 10/09/16 08:03 Dose: 18 mcg
[2016-10-09 11:37] LABS: BASO % 0.2 % (0.0-2.0); EOS % 0.1 % (0.0-4.0); HEMATOCRIT 37.8 % (35.0-51.0); LYMPH # 0.9 K/uL (1.0-4.3); MEAN CELL VOLUME 86.3 fL (80.0-94.0); MEAN CORPUSCULAR HEMOGLOBIN 27.4 pg (27.0-31.0); MEAN CORPUSCULAR HGB CONC 31.8 g/dL (33.0-37.0); MEAN PLATELET VOLUME 8.8 fL (7.2-11.7); MONO # 0.9 K/uL (0.0-0.8); MONO % 9.9 % (0.0-10.0); NRBC % 0.1 % (0.0-2.0); RED CELL DISTRIBUTION WIDTH 19.7 % (11.5-14.5); WHITE BLOOD COUNT 8.6 K/uL (4.8-10.8)
[2016-10-09 11:41] LABS: CHLORIDE 94 mmol/L (98-107); POTASSIUM 4.3 mmol/L (3.6-5.2); SODIUM 134 mmol/L (132-148)
[2016-10-09 11:43] LABS: BILIRUBIN,TOTAL 0.4 mg/dL (0.2-1.3); GFR AFRICAN-AMERICAN > 60
[2016-10-09 11:44] LABS: ALB/GLOB RATIO 1.2 (1.0-2.1); ALKALINE PHOSPHATASE 57 U/L (38-126); ALT/SGPT 11 U/L (21-72); AST/SGOT 17 U/L (17-59); BLOOD UREA NITROGEN 25 mg/dL (9-20); CALCIUM 8.6 mg/dl (8.6-10.4); CARBON DIOXIDE 29 mmol/L (22-30); GLUCOSE,RANDOM 98 mg/dL (75-110)
--- NOTE | 2016-10-09 12:40 | CP.PCM.PN ---
Subjective - Date & Time of Evaluation Date of Evaluation: 10/09/16 Time of Evaluation: 11:00 - Subjective Subjective: Feeling better Objective - Vital Signs/Intake and Output Vital Signs (last 24 hours): Temp Pulse Resp BP Pulse Ox 98.5 F 80 20 119/61 98 10/09/16 08:00 10/09/16 08:00 10/09/16 08:00 10/09/16 09:50 10/09/16 08:00 Intake and Output: 10/09/16 10/09/16 06:59 18:59 Intake Total 300 Output Total 1500 Balance -1200 - Medications Medications: Current Medications Albuterol/Ipratropium (Duoneb 3 Mg/0.5 Mg (3 Ml) Ud) 3 ml INH RQ6 [facility] Last Admin: 10/09/16 08:03 Dose: 3 ml Amlodipine Besylate (Norvasc) 5 mg PO DAILY [facility] Last Admin: 10/09/16 09:49 Dose: 5 mg Apixaban (Eliquis) 5 mg PO BID [facility] Last Admin: 10/09/16 09:49 Dose: 5 mg Furosemide (Lasix) 20 mg IVP DAILY [facility] Last Admin: 10/09/16 09:50 Dose: 20 mg Azithromycin 500 mg/ Sodium (Chloride) 250 mls @ 250 mls/hr IVPB DAILY@1030 [facility] Last Admin: 10/09/16 09:51 Dose: 250 mls/hr Piperacillin Sod/Tazobactam (Sod 3.375 gm/ Sodium Chloride) 100 mls @ 200 mls/ hr IVPB Q8H [facility] Last Admin: 10/09/16 09:53 Dose: 200 mls/hr Methylprednisolone (Solu-Medrol) 40 mg IVP Q12 [facility] Last Admin: 10/09/16 09:50 Dose: 40 mg Pneumococcal Polyvalent Vaccine (Pneumovax 23 Vaccine) 0.5 ml IM .ONCE ONE Stop: 10/10/16 10:01 Tiotropium [place] (Spiriva) 18 mcg IH RQD [facility] Last Admin: 10/09/16 08:03 Dose: 18 mcg - Labs Labs: 10/09/16 11:21 10/09/16 11:21 - Head Exam Head Exam: ATRAUMATIC - Eye Exam Eye Exam: Normal appearance - ENT Exam ENT Exam: Mucous Membranes Dry - Respiratory Exam Respiratory Exam: NORMAL BREATHING PATTERN - Cardiovascular Exam Cardiovascular Exam: +S1, +S2 - GI/Abdominal Exam GI & Abdominal Exam: Normal Bowel Sounds - Extremities Exam Extremities Exam: Pedal Edema Assessment and Plan (1) Deep vein thrombosis Assessment & Plan: recurrent has IVC filter Eliquis for life Status: Acute (2) Anemia Assessment & Plan: normal iron, b12, folate stores chronic disease Status: Acute
--- NOTE | 2016-10-09 15:47 | CP.PCM.PN ---
Subjective - Date & Time of Evaluation Date of Evaluation: 10/09/16 Time of Evaluation: 09:30 - Subjective Subjective: Pt was seen and examined at bedside. Pt denies SOB, cough, chest pain, palpitations, congestion, fevers/chills, leg pain, and swelling. Objective - Vital Signs/Intake and Output Vital Signs (last 24 hours): Temp Pulse Resp BP Pulse Ox 98.5 F 80 20 119/61 98 10/09/16 08:00 10/09/16 08:00 10/09/16 08:00 10/09/16 09:50 10/09/16 08:00 Intake and Output: 10/09/16 10/09/16 06:59 18:59 Intake Total 300 350 Output Total 1500 1400 Balance -1200 -1050 - Medications Medications: Current Medications Albuterol/Ipratropium (Duoneb 3 Mg/0.5 Mg (3 Ml) Ud) 3 ml INH RQ6 [facility] Last Admin: 10/09/16 13:56 Dose: 3 ml Amlodipine Besylate (Norvasc) 5 mg PO DAILY [facility] Last Admin: 10/09/16 09:49 Dose: 5 mg Apixaban (Eliquis) 5 mg PO BID [facility] Last Admin: 10/09/16 09:49 Dose: 5 mg Furosemide (Lasix) 20 mg IVP DAILY [facility] Last Admin: 10/09/16 09:50 Dose: 20 mg Azithromycin 500 mg/ Sodium (Chloride) 250 mls @ 250 mls/hr IVPB DAILY@1030 [facility] Last Admin: 10/09/16 09:51 Dose: 250 mls/hr Piperacillin Sod/Tazobactam (Sod 3.375 gm/ Sodium Chloride) 100 mls @ 200 mls/ hr IVPB Q8H [facility] Last Admin: 10/09/16 09:53 Dose: 200 mls/hr Methylprednisolone (Solu-Medrol) 40 mg IVP Q12 [facility] Last Admin: 10/09/16 09:50 Dose: 40 mg Pneumococcal Polyvalent Vaccine (Pneumovax 23 Vaccine) 0.5 ml IM .ONCE ONE Stop: 10/10/16 10:01 Tiotropium [place] (Spiriva) 18 mcg IH RQD [facility] Last Admin: 10/09/16 08:03 Dose: 18 mcg - Labs Labs: 10/09/16 11:21 10/09/16 11:21 - Constitutional Appears: Well, No Acute Distress - Head Exam Head Exam: ATRAUMATIC, NORMOCEPHALIC - Respiratory Exam Respiratory Exam: Decreased Breath Sounds, Clear to Ausculation Bilateral, Prolonged Expiratory Phase, Wheezes, NORMAL BREATHING PATTERN. absent: Rales, Rhonchi - Cardiovascular Exam Cardiovascular Exam: Irregular Rhythm (dropped beats), +S1, +S2. absent: Murmur - Neurological Exam Neurological Exam: Alert, Awake, Oriented x3 - Psychiatric Exam Psychiatric exam: Normal Affect, Normal Mood - Skin Skin Exam: Dry, Intact, Normal Color, Warm Assessment and Plan (1) COPD with exacerbation Assessment & Plan: 10-07-16 CXR retro-cardiac opacity reflect atelectasis or pneumonia, no plural effusion, no pnumothorax, CT f/u recommended at end of treatment 10-06-16 Blood and urine cultures show no growth 10-08-16 CT angio; no evidence of PE, no acute pulmonary disease, mild heart enlargement, esophagus mucosal thickening Continue Duoneb, Lasix, Solumedrol, Tiotropium Continue Azithromycin and Zosyn Continue Eliquis Status: Chronic (2) Hospital acquired PNA Status: Acute (3) DVT prophylaxis Status: Acute
--- NOTE | 2016-10-09 21:23 | PN ---
DATE: 10/09/2016 The patient was seen and examined at bedside. He is feeling better. Denies any shortness of breath as before, less cough. Denies any chest pain. REVIEW OF SYSTEMS: All other systems reviewed and were found to be negative. PHYSICAL EXAMINATION: GENERAL: Middle-aged male lying in bed in no acute distress. VITAL SIGNS: Blood pressure 134/69, pulse 68, respirations 20, temperature 98.2 degrees Fahrenheit, O2 sat is 96% on room air. HEENT: Pupils equal, round, reacting to light and accommodation. Extraocular muscles intact. No ic terus, no pallor. NECK: Supple. No JVD. LUNGS: Bilateral vesicular breath sounds, decreased breath sounds at bases, occasional wheezing hear d. CARDIOVASCULAR: S1, S2 present, regular. ABDOMEN: Soft, nontender. Bowel sounds present. No guarding, no rigidity, no rebound tenderness no jenn. CENTRAL NERVOUS SYSTEM: Alert, awake, oriented x 3. No focal deficits noted. EXTREMITIES: No edema. Palpable peripheral pulses. MEDICATIONS: Include DuoNeb, Norvasc 5 mg daily, Eliquis 5 mg p.o. b.i.d., Zithromax 500 mg p.o. vee ly, Lasix 20 mg IV push daily, Solu-Medrol 40 mg IV q. 12 hours, Zosyn 3.375 gram IV q. 8 hours, Spir kandice 18 mcg inhalation daily. LABORATORY DATA: From this morning, WBC 8.6, hemoglobin 12.0, hematocrit 37.8, platelets 285. Sodiu m 134, potassium 4.3, chloride 94, bicarbonate 29, BUN 26, creatinine 0.9, glucose 98, calcium 8.6, t otal bilirubin 0.48, AST 17, ALT 11, alkaline phosphatase 57, total protein 7.0, albumin 3.8. UA neg ative. Urine drug screen positive for opiates. ASSESSMENT AND PLAN: Middle-aged male with history of chronic obstructive pulmonary disease, hyperte nsion, arthritis, bilateral deep venous thromboses, pulmonary embolism with recurrent deep venous thr ombosis, on Eliquis for life, admitted for chronic obstructive pulmonary disease exacerbation and que stionable infiltrate on chest x-ray. Spiral CT negative for any pulmonary embolism. The patient is on Zosyn and Zithromax. Will continue with DuoNeb, Solu-Medrol. Will follow up with pulmonary. Willie santos discharge patient home if clinically stable and cleared by pulmonary. We will continue with Fadumo kahn. His blood pressure is stable. Hematology input appreciated. Continue with Eliquis 5 mg p.o. b.i .d. volunteer services manager for discharge planning. Sandi Patterson MD cc: [id number] TT: 10/09/2016 21:22:49 Confirmation # [id number] Dictation # [id number] rn
[2016-10-09 23:50] VITALS: TEMP 98.5
[2016-10-10] MEDS: Albuterol-Ipratrop 3 mg / 0.5 (3 ml) UD INH SCH ×3 (01:26→13:44)
[2016-10-10] MEDS: Piperacillin/Tazobact 3.375 GM in Sodium Chloride 100 ML IVPB SCH ×2 (02:04→10:27)
[2016-10-10] MEDS: Tiotropium 18 mcg Cap For Inhalation IH SCH (08:09)
[2016-10-10 08:51] VITALS: BP 153/86; PULSE 60; RESP 18; O2SAT 98
[2016-10-10] MEDS ORDERED: Pneumococcal 23-Valent Vaccine IM ONE (10:00)
[2016-10-10] MEDS: MethylPREDNISolone 40 mg Vial IVP SCH (10:25)
[2016-10-10] MEDS: Azithromycin 500 MG in Sodium Chloride 0.9% 250 ML IVPB SCH (10:26)
--- NOTE | 2016-10-10 11:29 | CP.PCM.PN ---
Subjective - Date & Time of Evaluation Date of Evaluation: 10/10/16 Time of Evaluation: 10:15 - Subjective Subjective: Pt was seen and examined at bedside. Pt complains of minor cough with chest congestion. Swallows any sputum produced; provided with cup and encouraged to cough up sputum to analyze appearance. Pt denies SOB, chest pain, palpitations , fevers and chills, leg pain, and swelling. Objective - Vital Signs/Intake and Output Vital Signs (last 24 hours): Temp Pulse Resp BP Pulse Ox 98.5 F 60 18 153/86 H 98 10/10/16 07:00 10/10/16 07:00 10/10/16 07:00 10/10/16 10:25 10/10/16 07:00 Intake and Output: 10/10/16 10/10/16 06:59 18:59 Intake Total 100 Output Total 1350 Balance -1250 - Medications Medications: Current Medications Albuterol/Ipratropium (Duoneb 3 Mg/0.5 Mg (3 Ml) Ud) 3 ml INH RQ6 [facility] Last Admin: 10/10/16 08:09 Dose: 3 ml Amlodipine Besylate (Norvasc) 5 mg PO DAILY [facility] Last Admin: 10/10/16 10:25 Dose: 5 mg Furosemide (Lasix) 20 mg IVP DAILY [facility] Last Admin: 10/10/16 10:25 Dose: 20 mg Azithromycin 500 mg/ Sodium (Chloride) 250 mls @ 250 mls/hr IVPB DAILY@1030 [facility] Last Admin: 10/10/16 10:26 Dose: 250 mls/hr Piperacillin Sod/Tazobactam Sod (Zosyn 3.375 Gm Iv Premix) 50 mls @ 100 mls/hr IVPB Q8H [facility] Methylprednisolone (Solu-Medrol) 40 mg IVP Q12 [facility] Last Admin: 10/10/16 10:25 Dose: 40 mg Tiotropium [place] (Spiriva) 18 mcg IH RQD [facility] Last Admin: 10/10/16 08:09 Dose: 18 mcg - Labs Labs: 10/09/16 11:21 10/09/16 11:21 - Constitutional Appears: Well, No Acute Distress - Head Exam Head Exam: ATRAUMATIC, NORMOCEPHALIC - Respiratory Exam Respiratory Exam: Prolonged Expiratory Phase, Wheezes, NORMAL BREATHING PATTERN. absent: Rales, Rhonchi, Respiratory Distress - Cardiovascular Exam Cardiovascular Exam: +S1, +S2. absent: Murmur - Neurological Exam Neurological Exam: Alert, Awake, Oriented x3 - Psychiatric Exam Psychiatric exam: Normal Affect, Normal Mood - Skin Skin Exam: Dry, Intact, Normal Color, Warm Assessment and Plan (1) COPD with exacerbation Assessment & Plan: 10-06-16 Blood and urine cultures show no growth 10-07-16 CXR retro-cardiac opacity reflect atelectasis or pneumonia, no plural effusion, no pnumothorax, CT f/u recommended at end of treatment 10-08-16 CT angio; no evidence of PE, no acute pulmonary disease, mild heart enlargement, esophagus mucosal thickening Continue Duoneb, Lasix, Solumedrol, Tiotropium Continue Azithromycin and Zosyn Continue Eliquis Continue current treatment with transition for discharge Optimized for discharge with recommended outpatient follow-up. Status: Chronic (2) Hospital acquired PNA Status: Acute (3) DVT prophylaxis Status: Acute
--- NOTE | 2016-10-10 15:21 | CP.PCM.PN ---
Subjective - Date & Time of Evaluation Date of Evaluation: 10/10/16 Time of Evaluation: 15:15 - Subjective Subjective: Discharge summary dictated #[id number] Objective - Vital Signs/Intake and Output Vital Signs (last 24 hours): Temp Pulse Resp BP Pulse Ox 98.5 F 60 18 153/86 H 98 10/10/16 07:00 10/10/16 07:00 10/10/16 07:00 10/10/16 10:25 10/10/16 07:00 Intake and Output: 10/10/16 10/10/16 06:59 18:59 Intake Total 100 Output Total 1350 Balance -1250 - Medications Medications: Current Medications Albuterol/Ipratropium (Duoneb 3 Mg/0.5 Mg (3 Ml) Ud) 3 ml INH RQ6 [facility] Last Admin: 10/10/16 13:44 Dose: Not Given Amlodipine Besylate (Norvasc) 5 mg PO DAILY [facility] Last Admin: 10/10/16 10:25 Dose: 5 mg Furosemide (Lasix) 20 mg IVP DAILY [facility] Last Admin: 10/10/16 10:25 Dose: 20 mg Azithromycin 500 mg/ Sodium (Chloride) 250 mls @ 250 mls/hr IVPB DAILY@1030 [facility] Last Admin: 10/10/16 10:26 Dose: 250 mls/hr Piperacillin Sod/Tazobactam Sod (Zosyn 3.375 Gm Iv Premix) 50 mls @ 100 mls/hr IVPB Q8H [facility] Methylprednisolone (Solu-Medrol) 40 mg IVP Q12 [facility] Last Admin: 10/10/16 10:25 Dose: 40 mg Tiotropium [place] (Spiriva) 18 mcg IH RQD [facility] Last Admin: 10/10/16 08:09 Dose: 18 mcg - Labs Labs: 10/09/16 11:21 10/09/16 11:21
[2016-10-10] MEDS ORDERED: Piperacill/Tazo 3.375gm in Dex 50 ML IVPB SCH (18:00)
--- NOTE | 2016-10-11 00:31 | DS ---
DISCHARGE DIAGNOSES: Chronic obstructive pulmonary disease exacerbation, hypertension, recurrent salbador ateral deep vein thromboses, on Eliquis for lifetime, chest x-ray with infiltrate, chest CT negative for any pulmonary embolism or infiltrate. HISTORY OF PRESENT ILLNESS: The patient is a 55-year-old male with past medical history of COPD, hyp ertension, arthritis, hyperlipidemia, history of bilateral recurrent deep venous thrombosis, PEs, sta tus post IVC filter placement, on Eliquis for life, admitted to [facility], [place] for symptoms of short ness of breath, wheezing, progressively getting worse. He was recently admitted to [facility] and was in the hospital for 1 week for COPD exacerbation and bilateral lower extremity DVT. Today, t he patient is feeling much better. Denies any headache, dizziness. Denies any chest pain, shortness of breath, or wheezing. Denies any nausea, vomiting, abdominal pain, diarrhea, or constipation. De nies any urinary complaints. Denies any leg pains or leg cramps. Denies any other neurologic sympto ms. PHYSICAL EXAMINATION: GENERAL: Middle-aged, obese male lying in bed in no acute distress. VITAL SIGNS: Blood pressure 152/86, pulse 60, respirations 18, temperature 98.3 degrees Fahrenheit, O2 sats 98% on room air. HEENT: Pupils equal, round, reacting to light and accommodation. Extraocular muscles intact. No ic terus, no pallor. No oral thrush. No pharyngeal congestion. NECK: Supple. No JVD, no thyromegaly. CHEST: Moving equally bilaterally on respiration. LUNGS: Bilateral vesicular breath sounds. Bilateral decreased breath sounds at bases. No wheezing. CARDIOVASCULAR: S1, S2 present, regular. ABDOMEN: Soft, nontender. Bowel sounds present. No guarding, no rigidity, no rebound tenderness no jenn. CENTRAL NERVOUS SYSTEM: Alert, awake, oriented x 3. No focal deficits noted. EXTREMITIES: No edema. Palpable peripheral pulses. LABORATORY DATA: Done from yesterday, WBC 8.6, hemoglobin 12, hematocrit 37.8, platelets 285. Sodiu m 134, potassium 4.3, chloride 94, bicarb 29, BUN 25, creatinine 0.9, glucose 98, calcium 8.6, total bilirubin 0.4. AST 17, ALT 11, alkaline phosphatase 57, total protein 7.0, albumin 3.8. UA negative . Urine drug screen positive for opiates. RADIOLOGY: Chest CT: No evidence of PE, no evidence of acute pulmonary disease, mildly enlarged, up per normal limits, heart size, mild diffuse esophageal mucosal thickening suspicious for esophagitis. Chest x-ray on admission: Subtle retrocardiac opacity, may reflect atelectasis or pneumonia. HOSPITAL COURSE: The patient was admitted to the hospital for COPD exacerbation. The patient was st arted on IV Solu-Medrol, nebulizer treatments, and IV antibiotics. The patient was evaluated by pulm onary and hematology. The patient was restarted on Eliquis. The patient underwent CT angio to rule out any PE. The patient was ruled out for any PE. The patient was seen by pulmonary. His symptoms improved. He was given Zosyn and Zithromax. As the patient is clinically improving and feeling much better, the patient is cleared by pulmonary a nd hematology. The patient is being discharged. I advised patient to follow up with pulmonary, prosper tology, PMD, and gastroenterology for a screening EGD and colonoscopy. The patient would like to fol low up with his PMD at the clinic. The patient understands the need for followup and verbalized unde rstanding. CONDITION UPON DISCHARGE: The patient is alert, awake, oriented x 3, and hemodynamically stable. DISCHARGE INSTRUCTIONS: Follow up with PMD, follow up with pulmonary, followup with hematology, and follow up with GI. DISCHARGE DIET: Heart healthy diet. ACTIVITY: As tolerated. DISCHARGE MEDICATIONS: Eliquis 5 mg p.o. b.i.d., Norvasc 5 mg p.o. daily, prednisone tapering doses, Proventil inhaler, Augmentin 875 mg p.o. b.i.d. for another 5 days, Protonix 40 mg daily, Bacid 1 ca p p.o. b.i.d. Also, refer to discharge instruction sheet. Sandi Patterson MD cc: [id number] TT: 10/11/2016 00:31:13 quinn
== END 2016-10-10 15:59 | disposition home or self-care (01) | DRG 88 ==
LOC: C.ER 13:23 → C.9E 16:42 → C.3T 17:57 → OBSVTOIN 10-08 12:18 → C.3T 10-08 21:46
PROVIDERS: ADMIT Internal Medicine; ATTEND Internal Medicine
DX: J44.1 Chronic obstructive pulmonary disease with (acute) exacerbation (principal); J18.9 Pneumonia, unspecified organism; J45.901 Unspecified asthma with (acute) exacerbation; I82.503 Chronic embolism and thrombosis of unspecified deep veins of lower extremity, bilateral; F11.90 Opioid use, unspecified, uncomplicated; I27.2 Other secondary pulmonary hypertension; I10 Essential (primary) hypertension; E78.00 Pure hypercholesterolemia, unspecified; M19.90 Unspecified osteoarthritis, unspecified site; E78.5 Hyperlipidemia, unspecified; F17.210 Nicotine dependence, cigarettes, uncomplicated; Z79.01 Long term (current) use of anticoagulants; D63.8 Anemia in other chronic diseases classified elsewhere; Z86.711 Personal history of pulmonary embolism

== ENCOUNTER 2017-01-24 21:11 | Observation (INO) | payer MEDICAID ==
[2017-01-24 21:12] VITALS: BMI 24.3
[2017-01-24] MEDS ORDERED: Albuterol-Ipratrop 3 mg / 0.5 (3 ml) UD ONE ×2 (21:33→22:53)
--- NOTE | 2017-01-24 22:18 | C.PDOC ---
History Of Present Illness Patient with Hx of Asthma presents to ED with complaints of worsen sob since 7pm today. Patient states he was walking with aid of his walker when symptoms developed. At ed Patient is speaking in complete sentences and denies fever, chills, n/v/d or any other complaints at this time. Time Seen by Provider: 01/24/17 22:17 Chief Complaint (Nursing): Shortness Of Breath History Per: Patient History/Exam Limitations: no limitations Onset/Duration Of Symptoms: Hrs Current Symptoms Are (Timing): Still Present Initiating Event: Upper Respiratory Illness, Other (Walking) Severity: Mild Pain Scale Rating Of: 2 Associated Symptoms: denies: Fever, Chills Recent travel outside of the [place]: No Past Medical History Reviewed: Historical Data, Nursing Documentation, Vital Signs Vital Signs: Last Vital Signs Temp 98.8 F 01/24/17 21:17 Pulse 85 01/24/17 21:17 Resp 20 01/24/17 21:17 BP 158/82 H 01/24/17 21:17 Pulse Ox 96 01/25/17 00:18 - Medical History PMH: Arthritis, Asthma, Bronchitis, COPD, HTN, Hypercholesterolemia, Pulmonary Embolism Surgical History: Hernia Repair Denies: Pacemaker - [facility] Procedures INSERTION OF INTRALUM DEV INTO INF VENA CAVA, PERC APPROACH (08/29/15) INTRODUCE OF OTH THERAP SUBST INTO RESP TRACT, VIA OPENING (06/07/15) INTRODUCTION OF SERUM/TOX/VACCINE INTO MUSCLE, PERC APPROACH (09/11/16) NEBULIZER THERAPY (02/27/15) Family History: States: No Known Family Hx - Social History Hx Tobacco Use: Yes Hx Alcohol Use: Yes Hx Substance Use: Yes - Immunization History Hx Tetanus Toxoid Vaccination: Yes Hx Influenza Vaccination: Yes Hx Pneumococcal Vaccination: Yes Review Of Systems Constitutional: Negative for: Fever, Chills Eyes: Negative for: Redness ENT: Negative for: Throat Pain Cardiovascular: Negative for: Chest Pain Respiratory: Positive for: Shortness of Breath. Negative for: Cough Gastrointestinal: Negative for: Nausea, Vomiting, Diarrhea Genitourinary: Negative for: Dysuria Musculoskeletal: Negative for: Back Pain Skin: Negative for: Rash Neurological: Negative for: Weakness Psych: Negative for: Anxiety Physical Exam - Physical Exam Appears: Non-toxic, No Acute Distress Skin: Warm, No Rash Head: Normacephalic Eye(s): bilateral: Normal Inspection Oral Mucosa: Moist Neck: Supple Chest: Symmetrical Cardiovascular: Rhythm Regular Respiratory: No Rales, Rhonchi (at Bases), Wheezing (Diffuse ) Gastrointestinal/Abdominal: Soft, No Tenderness, Distention, Other (Tympanic to Percussion) Back: No CVA Tenderness Extremity: Pedal Edema (Bilateral), No Calf Tenderness Extremity: Bilateral: Atraumatic Pulses: Left Dorsalis Pedis: Normal, Right Dorsalis Pedis: Normal Neurological/Psych: Oriented x3, Normal Speech, Normal Cognition Gait: With Assistance ED Course And Treatment - Laboratory Results Result Diagrams: 01/24/17 23:27 08 23:27 ECG: Interpreted By Me ECG Rhythm: Sinus Rhythm (74), R BBB, Nonspecific Changes (lahb) O2 Sat by Pulse Oximetry: 96 (RA) Pulse Ox Interpretation: Normal - Radiology CXR: Interpreted by Me CXR Interpretation: No: Infiltrates, Fracture, Pnemothorax Disposition Discussed With : Rickie Altamirano Comment: accepted the pt on his service and took over the care at 12:25 AM Doctor Will See Patient In The: Hospital Counseled Patient/Family Regarding: Studies Performed, Diagnosis, Need For Followup - Disposition Disposition: HOSPITALIZED Disposition Time: 22:17 Condition: FAIR Forms: [facility] (Hungarian) - Clinical Impression Clinical Impression: Chr obstructive pulmonary disease w/ acute lower respiratory infxn, Wheezing - Scribe Statement The provider has reviewed the documentation as recorded by the Scribabida Mancilla All medical record entries made by the Scribe were at my direction and personally dictated by me. I have reviewed the chart and agree that the record accurately reflects my personal performance of the history, physical exam, medical decision making, and the department course for this patient. I have also personally directed, reviewed, and agree with the discharge instructions and disposition.
[2017-01-24] MEDS: Albuterol-Ipratrop 3 mg / 0.5 (3 ml) UD IH SCH (22:56)
[2017-01-24 23:31] LABS: BASO % 0.8 % (0.0-2.0); EOS # 0.6 K/uL (0.0-0.7); EOS % 10.1 % (0.0-4.0); HEMOGLOBIN 10.7 g/dL (12.0-18.0); LYMPH # 1.2 K/uL (1.0-4.3); LYMPH % 20.4 % (20.0-40.0); MEAN CORPUSCULAR HEMOGLOBIN 29.2 pg (27.0-31.0); MEAN CORPUSCULAR HGB CONC 32.7 g/dL (33.0-37.0); MEAN PLATELET VOLUME 8.4 fL (7.2-11.7); MONO # 0.6 K/uL (0.0-0.8); MONO % 9.8 % (0.0-10.0); NEUT # 3.5 K/uL (1.8-7.0); NEUT % 58.9 % (50.0-75.0); RBC 3.65 Mil/uL (4.40-5.90); RED CELL DISTRIBUTION WIDTH 16.7 % (11.5-14.5); WHITE BLOOD COUNT 5.9 K/uL (4.8-10.8)
[2017-01-24 23:33] LABS: MEAN CELL VOLUME 89.4 fL (80.0-94.0)
[2017-01-24 23:38] LABS: ALBUMIN 3.9 g/dL (3.5-5.0)
[2017-01-24 23:39] LABS: PROTHROMBIN TIME 11.2 SECONDS (9.7-12.2)
[2017-01-24 23:41] LABS: ALB/GLOB RATIO 1.1 (1.0-2.1); ALT/SGPT 25 U/L (21-72); AST/SGOT 37 U/L (17-59); BLOOD UREA NITROGEN 15 mg/dL (9-20); GFR AFRICAN-AMERICAN > 60; GFR NON-AFRICAN AMERICAN > 60
[2017-01-24 23:42] LABS: CALCIUM 8.5 mg/dl (8.6-10.4)
[2017-01-24 23:50] LABS: B-TYPE NATRIURETIC PEPTIDE 94.1 pg/mL (0-900)
[2017-01-24 23:52] LABS: ABG ALLEN TEST POS; ARTERIAL BLOOD GAS HCO3 26.4 mmol/L (21-28); ARTERIAL BLOOD GAS O2 SAT 99.9 % (95-98); ARTERIAL BLOOD GAS PCO2 55 mm/Hg (35-45); ARTERIAL BLOOD GAS PH 7.33 (7.35-7.45); ARTERIAL BLOOD GAS PO2 108 mm/Hg (80-100); ARTERIAL BLOOD GAS TCO2 30.7 mmol/L (22-28)
[2017-01-25] MEDS ORDERED: Albuterol-Ipratrop 3 mg / 0.5 (3 ml) UD INH PRN (00:21)
[2017-01-25] MEDS ORDERED: Azithromycin 500mg/250ML NS 250 MG/125 ML BAG IVPB SCH (00:30)
[2017-01-25] MEDS ORDERED: Azithromycin 500mg/250ML NS 500 MG/250 ML BAG IVPB SCH (02:15)
--- NOTE | 2017-01-25 08:30 | RAD ---
PROCEDURE: CHEST RADIOGRAPH, 1 VIEW HISTORY: SOB COMPARISON: Chest radiographs 10/07/2016. FINDINGS: LUNGS: No acute infiltrate identified however is provide appears decreased. PLEURA: No pneumothorax or pleural fluid seen. CARDIOVASCULAR: Normal. OSSEOUS STRUCTURES: No significant abnormalities. VISUALIZED UPPER ABDOMEN: Normal. OTHER FINDINGS: None. IMPRESSION: No acute infiltrate or pleural effusion. Cardiac size stable.
[2017-01-25] MEDS: MethylPREDNISolone 40 mg Vial IVP SCH ×2 (12:04→20:19)
[2017-01-25] MEDS: Albuterol-Ipratrop 3 mg / 0.5 (3 ml) UD INH SCH ×2 (13:01→20:09)
--- NOTE | 2017-01-25 15:59 | CP.PCM.PN ---
Subjective - Date & Time of Evaluation Date of Evaluation: 01/25/17 Time of Evaluation: 07:50 - Subjective Subjective: Medicine Note- Dr. Arceo service Patient is a 56 year old male with PMHx of COPD, arthritis, Htn, Hld, hx of bilateral DVT, hx of PE, s/p IVC filter, history of kidney failure that presented to the hospital complaining of shortness of breath. Patient reports he is compliant with his home medications. Patient states he currently feels better compared to when he first came in, but he is still coughing and wheezing. No events overnight per nursing. Objective - Vital Signs/Intake and Output Vital Signs (last 24 hours): Temp Pulse Resp BP Pulse Ox 98.3 F 66 18 104/61 94 L 01/25/17 08:18 01/25/17 14:17 01/25/17 08:18 01/25/17 08:18 01/25/17 08:18 - Medications Medications: Current Medications Albuterol/Ipratropium (Duoneb 3 Mg/0.5 Mg (3 Ml) Ud) 3 ml INH RQ6 [facility] Last Admin: 01/25/17 13:01 Dose: 3 ml Amlodipine Besylate (Norvasc) 5 mg PO DAILY [facility] Last Admin: 01/25/17 09:18 Dose: 5 mg Azithromycin (Zithromax 500mg In Ns Addvantage) 500 mg in 250 mls @ 166.667 mls /hr IVPB STAT [facility] Methylprednisolone (Solu-Medrol) 40 mg IVP Q8H [facility] Last Admin: 01/25/17 12:04 Dose: 40 mg Pantoprazole Sodium (Protonix Inj) 40 mg IVP DAILY [facility] Last Admin: 01/25/17 09:18 Dose: 40 mg Fluticasone/Salmeterol (Advair Diskus 100/50) 1 puff INH RQ12 [facility] - Labs Labs: PT 11.2 SECONDS (9.7-12.2) 01/24/17 23:27 INR 1.0 01/24/17 23:27 APTT 23 SECONDS (21-34) 01/24/17 23:27 - Constitutional Appears: Non-toxic, No Acute Distress, Older Than Stated Age - Head Exam Head Exam: ATRAUMATIC, NORMAL INSPECTION, NORMOCEPHALIC - Eye Exam Pupil Exam: NORMAL ACCOMODATION - ENT Exam ENT Exam: Mucous Membranes Moist - Respiratory Exam Respiratory Exam: Clear to Ausculation Bilateral, Wheezes, NORMAL BREATHING PATTERN. absent: Prolonged Expiratory Phase, Rhonchi - Cardiovascular Exam Cardiovascular Exam: REGULAR RHYTHM, +S1, +S2 - GI/Abdominal Exam GI & Abdominal Exam: Soft, Normal Bowel Sounds. absent: Tenderness, Diminished Bowel Sounds, Hypoactive Bowel Sounds, Pulsatile Mass - Extremities Exam Extremities Exam: Normal Capillary Refill - Neurological Exam Neurological Exam: Alert, Awake, Oriented x3 - Psychiatric Exam Psychiatric exam: Normal Affect, Normal Mood - Skin Skin Exam: Dry, Intact, Normal Color, Warm Assessment and Plan - Assessment and Plan (Free Text) Assessment: COPD exacerbation CXR- 01/24/17- Negative Started on Solumedrol 40mg IVP Q8h Duoneb INH Q6h Spiriva 18mcg INH RQ24h Advair 500/50 1 puff INH Q12h Hypertension started on home med: Norvasc 10mg PO Daily Lasix 20mg PO BID Echo from 09/11/16- EF 65-70%, mild to mod tricuspid regurg and pulm htn Hx of DVTs/PE On home med: Eliquis 5mg PO BID s/p IVC in place Prophylactic Measure On Eliquis 5mg pO BID Protonix 40mg IVP Daily All medication management as per Dr. Altamirano.
--- NOTE | 2017-01-25 19:08 | CARD ---
APPROVED REPORT EKG Measurement Heart [id number] MA 140P68 [id number] <Conclusion> Normal sinus rhythm RSR' or QR pattern in V1 suggests right ventricular conduction delay Left anterior fascicular block Moderate voltage criteria for LVH, may be normal variant Junctional ST depression, probably normal Abnormal ECG
[2017-01-25] MEDS ORDERED: Fluticasone-Salmeterol 100-50mcg Diskus INH SCH (20:00)
[2017-01-25] MEDS: Fluticasone-Salmeterol 500-50mcg Diskus INH SCH (20:09)
[2017-01-26 00:31] VITALS: RESP 20; O2SAT 95
[2017-01-26] MEDS: Albuterol-Ipratrop 3 mg / 0.5 (3 ml) UD INH SCH ×3 (01:11→13:26)
[2017-01-26] MEDS: MethylPREDNISolone 40 mg Vial IVP SCH (03:29)
[2017-01-26] MEDS: Fluticasone-Salmeterol 500-50mcg Diskus INH SCH (07:04)
[2017-01-26] MEDS ORDERED: Tiotropium 18 mcg Cap For Inhalation INH SCH (08:00)
[2017-01-26 08:28] VITALS: BP 115/70; PULSE 75; TEMP 98.5
--- NOTE | 2017-01-26 11:07 | CP.PCM.PN ---
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 Jaleel felix, as per Dr. Altamirano pt can be discharged home today with medrol dose pack and f/u with clinin c discharge plan discussed with patient who understands and agrees with plan Pt instructed to returns to ED if symptoms get worse or any other concerning symptoms Objective - Vital Signs/Intake and Output Vital Signs (last 24 hours): Temp Pulse Resp BP Pulse Ox 98.5 F 75 20 115/70 95 01/26/17 08:00 01/26/17 08:00 01/26/17 08:00 01/26/17 10:10 01/26/17 08:00 Intake and Output: 01/26/17 01/26/17 06:59 18:59 Intake Total 400 Balance 400 - Medications Medications: Current Medications Albuterol/Ipratropium (Duoneb 3 Mg/0.5 Mg (3 Ml) Ud) 3 ml INH RQ6 [facility] Last Admin: 01/26/17 07:04 Dose: Not Given Amlodipine Besylate (Norvasc) 10 mg PO DAILY [facility] Last Admin: 01/26/17 10:10 Dose: 10 mg Apixaban (Eliquis) 5 mg PO BID [facility] Last Admin: 01/26/17 10:10 Dose: 5 mg Furosemide (Lasix) 20 mg PO BID [facility] Last Admin: 01/26/17 10:10 Dose: 20 mg Azithromycin (Zithromax 500mg In Ns Addvantage) 500 mg in 250 mls @ 166.667 mls /hr IVPB STAT [facility] Methylprednisolone (Solu-Medrol) 40 mg IVP Q8H [facility] Last Admin: 01/26/17 03:29 Dose: 40 mg Pantoprazole Sodium (Protonix Inj) 40 mg IVP DAILY [facility] Last Admin: 01/26/17 10:10 Dose: 40 mg Fluticasone/Salmeterol (Advair Diskus 500/50) 1 puff INH RQ12 [facility] Last Admin: 01/26/17 07:04 Dose: Not Given Tiotropium [place] (Spiriva) 18 mcg INH RQ24 [facility] Last Admin: 01/26/17 07:04 Dose: Not Given - Labs Labs: PT 11.2 SECONDS (9.7-12.2) 01/24/17 23:27 INR 1.0 01/24/17 23:27 APTT 23 SECONDS (21-34) 01/24/17 23:27
--- NOTE | 2017-01-27 15:19 | HP ---
HISTORY OF PRESENT ILLNESS: The patient has a history of COPD and chief complaint of shortness of breath, wheezes, cough, fatigue, and tiredness. The patient came to the ER, advised admission to the hospital. The patient is on albuterol and Atrovent. PHYSICAL EXAMINATION: GENERAL: The patient is awake, alert, and oriented, short of breath. VITAL SIGNS: Temperature 98 and pulse is 94. HEENT: Within normal limits. NECK: Supple. CHEST: Symmetrical. Good air entry. HEART: Regular. ABDOMEN: Soft. EXTREMITIES: No edema. IMPRESSION: The patient presents with chronic obstructive pulmonary disease and bronchitis. The patient is on bedrest, supportive care. Rickie Altamirano MD
--- NOTE | 2017-01-28 09:05 | DS ---
The patient was admitted to the hospital with exacerbation of COPD. Treated with bronchodilators, steroid, and O2. The patient is showing improvement and discharged to follow up as outpatient. Rickie Altamirano MD
== END 2017-01-26 13:30 | disposition home or self-care (01) ==
LOC: C.ER 21:11 → C.9E 01-25 00:19 → C.5T 01-25 01:46
PROVIDERS: ADMIT Internal Medicine Pulmonary Disease; ATTEND Internal Medicine Pulmonary Disease
DX: J44.1 Chronic obstructive pulmonary disease with (acute) exacerbation (principal); I27.2 Other secondary pulmonary hypertension; I10 Essential (primary) hypertension; E78.5 Hyperlipidemia, unspecified; Z87.891 Personal history of nicotine dependence
CPT/HCPCS: 36600; 71010; 80053; 82803; 83880; 85025; 85610; 85730; 87040; 93005; 94640; 94760; 96374; 99285; C9113; G0378; J2920; J2930

== ENCOUNTER 2017-05-10 07:50 | Day surgery (SDC) | payer MEDICAID ==
[2017-05-10 09:39] VITALS: BMI 29.0
[2017-05-10] MEDS ORDERED: Midazolam 2 MG/2 ML VIAL ONE (12:13)
[2017-05-10] MEDS ORDERED: Propofol 10 mg/ml Inj (20 ML) ONE (12:14)
--- NOTE | 2017-05-10 12:29 | CP.SDSHP ---
Same Day Surgery H & P - History Proposed Procedure: EGD/Colonoscopy Pre-Op Diagnosis: OB positive, GERD, BRBPR - Previous Medical/Surgical History Cardiac: Hypertension - Allergies Allergies: Allergies No Known Allergies Allergy (Verified 05/10/17 09:40) - Physical Exam General Appearance: nl Vital Signs: Vital Signs 05/10/17 05/10/17 09:14 12:16 Temperature 97.8 F 97.8 F Pulse Rate 79 79 Respiratory 19 18 Rate Blood Pressure 135/81 116/72 O2 Sat by Pulse 98 100 Oximetry Mental Status: Alert & Oriented x3 Neuro: WNL Heart: WNL Lungs: WNL GI: WNL - {Optional Preform as Required} Abdomen: WNL - Impression Impression: gerd. ob positive. brbpr. egd/colon Pt. Evaluated Today:Candidate for Anesthesia & Procedure: Yes - Date & Time Date: 05/10/17 Time: 12:29 Short Stay Discharge - Short Stay Discharge Admitting Diagnosis/Reason for Visit: GASTRO-ESOPHAGEAL REFLUX DISEASE WITHOUT ESOPHAGIT Disposition: HOME/ ROUTINE
[2017-05-10 14:27] VITALS: TEMP 97.5
[2017-05-10 14:29] VITALS: O2SAT 95
[2017-05-10 15:21] VITALS: BP 140/80; PULSE 70; RESP 18
== END 2017-05-10 18:00 | disposition home or self-care (01) ==
LOC: C.ENDO 07:50
PROVIDERS: ATTEND Internal Medicine
DX: K31.9 Disease of stomach and duodenum, unspecified (principal); R19.5 Other fecal abnormalities; K62.5 Hemorrhage of anus and rectum; K44.9 Diaphragmatic hernia without obstruction or gangrene; K64.8 Other hemorrhoids; K57.90 Diverticulosis of intestine, part unspecified, without perforation or abscess without bleeding; D12.2 Benign neoplasm of ascending colon; D12.5 Benign neoplasm of sigmoid colon; D12.3 Benign neoplasm of transverse colon; K29.70 Gastritis, unspecified, without bleeding; K20.9 Esophagitis, unspecified
CPT/HCPCS: 43239; 45388; 88305; J2250; J2704

== ENCOUNTER 2017-05-19 12:05 | Emergency (ER) | payer MEDICAID ==
[2017-05-19 12:05] VITALS: BMI 29.0
[2017-05-19] MEDS ORDERED: Albuterol-Ipratrop 3 mg / 0.5 (3 ml) UD ONE ×2 (12:32→13:37)
[2017-05-19] MEDS ORDERED: Albuterol-Ipratrop 3 mg / 0.5 (3 ml) UD INH STA (12:33)
[2017-05-19 12:38] VITALS: TEMP 98
[2017-05-19 13:25] LABS: BASO % 1.1 % (0.0-2.0); EOS # 0.2 K/uL (0.0-0.7); EOS % 5.4 % (0.0-4.0); HEMATOCRIT 33.9 % (35.0-51.0); LYMPH # 1.3 K/uL (1.0-4.3); LYMPH % 30.8 % (20.0-40.0); MEAN CELL VOLUME 90.9 fL (80.0-94.0); MEAN CORPUSCULAR HEMOGLOBIN 30.3 pg (27.0-31.0); MEAN CORPUSCULAR HGB CONC 33.3 g/dL (33.0-37.0); MEAN PLATELET VOLUME 9.2 fL (7.2-11.7); MONO # 0.4 K/uL (0.0-0.8); NRBC % 0.1 % (0.0-2.0); RED CELL DISTRIBUTION WIDTH 16.7 % (11.5-14.5); WHITE BLOOD COUNT 4.1 K/uL (4.8-10.8)
[2017-05-19] MEDS: Albuterol-Ipratrop 3 mg / 0.5 (3 ml) UD IH SCH ×2 (13:35→13:45)
[2017-05-19 13:36] LABS: ALKALINE PHOSPHATASE 71 U/L (38-126); ALT/SGPT 47 U/L (21-72); AST/SGOT 50 U/L (17-59); BILIRUBIN,TOTAL 0.5 mg/dL (0.2-1.3); BLOOD UREA NITROGEN 19 mg/dL (9-20); CALCIUM 7.8 mg/dl (8.6-10.4); CARBON DIOXIDE 28 mmol/L (22-30); CHLORIDE 98 mmol/L (98-107); GFR AFRICAN-AMERICAN > 60; GLUCOSE,RANDOM 85 mg/dL (75-110); SODIUM 133 mmol/L (132-148); TOTAL PROTEIN 6.2 g/dL (6.3-8.3)
[2017-05-19 13:37] LABS: ALB/GLOB RATIO 1.7 (1.0-2.1)
[2017-05-19 14:50] VITALS: RESP 20
--- NOTE | 2017-05-19 15:54 | C.PDOC ---
History Of Present Illness 56-year-old male, PMHx includes COPD, presents to the emergency department with complaints of shortness of breath, when he was trying to walk up the stairs. Denies nausea, fevers, chest pain, vomiting or diarrhea. No other complaints at this time. Time Seen by Provider: 05/19/17 12:56 Chief Complaint (Nursing): Shortness Of Breath History Per: Patient History/Exam Limitations: no limitations Onset/Duration Of Symptoms: Days Current Symptoms Are (Timing): Still Present Past Medical History Reviewed: Historical Data, Nursing Documentation, Vital Signs Vital Signs: Last Vital Signs Temp 98 F 05/19/17 12:34 Pulse 81 05/19/17 16:04 Resp 20 05/19/17 16:04 BP 144/84 05/19/17 16:04 Pulse Ox 94 L 05/19/17 16:15 - Medical History PMH: Arthritis, Asthma, Bronchitis, COPD, Gastrointestinal Ulcer, Gall Bladder Disease, HTN, Hypercholesterolemia, Pulmonary Embolism, Chronic Kidney Disease Surgical History: Hernia Repair - [facility] Procedures INSERTION OF INTRALUM DEV INTO INF VENA CAVA, PERC APPROACH (08/29/15) INTRODUCE OF OTH THERAP SUBST INTO RESP TRACT, VIA OPENING (06/07/15) INTRODUCTION OF SERUM/TOX/VACCINE INTO MUSCLE, PERC APPROACH (09/11/16) NEBULIZER THERAPY (02/27/15) Family History: States: No Known Family Hx - Social History Hx Tobacco Use: Yes Hx Alcohol Use: Yes Hx Substance Use: Yes (heroin) - Immunization History Hx Tetanus Toxoid Vaccination: Yes Hx Influenza Vaccination: Yes Hx Pneumococcal Vaccination: Yes Review Of Systems Except As Marked, All Systems Reviewed And Found Negative. Constitutional: Negative for: Fever, Chills Cardiovascular: Negative for: Chest Pain Respiratory: Positive for: Shortness of Breath Gastrointestinal: Negative for: Nausea, Vomiting, Abdominal Pain Musculoskeletal: Negative for: Back Pain Neurological: Negative for: Headache, Dizziness Physical Exam - Physical Exam Appears: Non-toxic, No Acute Distress Skin: Normal Color, Warm, Dry, No Rash Head: Atraumatic, Normacephalic Eye(s): bilateral: Normal Inspection, PERRL, EOMI Nose: Normal Oral Mucosa: Moist Lips: Normal Appearing Throat: No Erythema, No Exudate Neck: Normal ROM, No Midline Cervical Tenderness, No Paracervical Tenderness, Supple Chest: Symmetrical Cardiovascular: Rhythm Regular, No Friction Rub, No Murmur Respiratory: Normal Breath Sounds, No Accessory Muscle Use, Wheezing (B/L expiratory), Other (No retractions) Gastrointestinal/Abdominal: Soft, No Tenderness Back: Normal Inspection, No CVA Tenderness Extremity: Normal ROM, No Swelling Neurological/Psych: Oriented x3, Normal Speech, Normal Motor Gait: Steady ED Course And Treatment - Laboratory Results Result Diagrams: 05/19/17 13:21 05/19/17 13:21 O2 Sat by Pulse Oximetry: 94 (on RA) Pulse Ox Interpretation: Normal - Other Rad CXR X-Ray: Viewed By Me, Read By Radiologist Interpretation: Accession No. : [id number]. Patient Name / ID : ADELAIDA SCHAEFFER / [id number]. Exam Date : 05/19/2017 13:40:44 ( Approved ). Study Comment : Sex / Age : M / [id number]. Creator : Cornelius Godoy MD. Dictator : Patrol Captain : Polymerization Helper : Cornelius Godoy MD. Approver2 : Report Date : 05/19/2017 16:09:19. My Comment : . PROCEDURE: CHEST RADIOGRAPH, 1 VIEW. HISTORY: SOB. COMPARISON: Comparison made with prior study 01/24/2017. . FINDINGS: LUNGS: Clear. PLEURA: No pneumothorax or pleural fluid seen. CARDIOVASCULAR: Heart size within range of normal. . Aorta is slightly ectatic and uncoiled. The mild calcification aortic knob. OSSEOUS STRUCTURES: No significant abnormalities. VISUALIZED UPPER ABDOMEN: Normal. OTHER FINDINGS: None. IMPRESSION: No active disease. Medical Decision Making Medical Decision Making: Plan: * EKG * Chest X-Ray * Labs * Duoneb, Solu-Medrol * Reassess and Disposition Patient reports improvement of symptoms. Patient is 95% on RA. Patient is ambulatory in the ED with steady gait and no shortness of breath, Disposition - Disposition Referrals: Sahil Oneill [Student Nurse] - Disposition: HOME/ ROUTINE Disposition Time: 15:51 Condition: GOOD Additional Instructions: Follow up with the medical doctor within 1-2 days. Return if worsened. Prescriptions: Albuterol HFA [Ventolin HFA 90 mcg/actuation (8 g)] 1 puff IH Q6 #1 inhaler Azithromycin [Zithromax] 250 mg PO DAILY #6 tab Methylprednisolone [Medrol Dose Pack (21 tabs)] 4 mg PO DAILY #21 mg Instructions: COPD (Chronic Obstructive Pulmonary Disease) (ED) Forms: [facility] (Djiboutian) - Clinical Impression Clinical Impression: COPD with exacerbation - Scribe Statement The provider has reviewed the documentation as recorded by the Scribe (Adali Maguire) All medical record entries made by the Scribe were at my direction and personally dictated by me. I have reviewed the chart and agree that the record accurately reflects my personal performance of the history, physical exam, medical decision making, and the department course for this patient. I have also personally directed, reviewed, and agree with the discharge instructions and disposition.
[2017-05-19 16:05] VITALS: BP 144/84; PULSE 81
[2017-05-19 16:11] VITALS: O2SAT 94
--- NOTE | 2017-05-19 16:11 | RAD ---
PROCEDURE: CHEST RADIOGRAPH, 1 VIEW HISTORY: SOB COMPARISON: Comparison made with prior study 01/24/2017. . FINDINGS: LUNGS: Clear. PLEURA: No pneumothorax or pleural fluid seen. CARDIOVASCULAR: Heart size within range of normal. . Aorta is slightly ectatic and uncoiled. The mild calcification aortic knob. OSSEOUS STRUCTURES: No significant abnormalities. VISUALIZED UPPER ABDOMEN: Normal. OTHER FINDINGS: None. IMPRESSION: No active disease.
--- NOTE | 2017-05-20 17:44 | CARD ---
APPROVED REPORT EKG Measurement Heart [id number] CT 134P52 [id number] <Conclusion> Normal sinus rhythm Incomplete right bundle branch block Left anterior fascicular block Minimal voltage criteria for LVH, may be normal variant Abnormal ECG
== END 2017-05-19 16:16 | disposition home or self-care (01) ==
LOC: C.ER 12:05
DX: J44.1 Chronic obstructive pulmonary disease with (acute) exacerbation (principal)
CPT/HCPCS: 71010; 80053; 83880; 85025; 93005; 94640; 96374; 99284; J2930

== ENCOUNTER 2017-07-22 06:51 | Day surgery (SDC) | payer MEDICAID ==
[2017-07-22 08:04] VITALS: BMI 32.3
[2017-07-22] MEDS ORDERED: Lactated Ringer's 1,000 ML IV ONE (09:33)
--- NOTE | 2017-07-22 09:33 | CP.SDSHP ---
Same Day Surgery H & P - History Proposed Procedure: egd Pre-Op Diagnosis: esophagitis - Previous Medical/Surgical History Cardiac: Arrhythmia - Allergies Allergies: Allergies No Known Allergies Allergy (Verified 05/19/17 12:38) - Physical Exam General Appearance: nl Vital Signs: Vital Signs 07/22/17 07:50 Temperature 97 F L Pulse Rate 76 Respiratory 19 Rate Blood Pressure 133/71 O2 Sat by Pulse 98 Oximetry Mental Status: Alert & Oriented x3 Neuro: WNL Heart: WNL Lungs: WNL GI: WNL - {Optional Preform as Required} Abdomen: WNL - Impression Impression: esophagitis Pt. Evaluated Today:Candidate for Anesthesia & Procedure: Yes - Date & Time Date: 07/22/17 Time: 09:33 Short Stay Discharge - Short Stay Discharge Admitting Diagnosis/Reason for Visit: ESOPHAGITIS Disposition: HOME/ ROUTINE
[2017-07-22] MEDS ORDERED: Propofol 10 mg/ml Inj (20 ML) ONE (09:37)
[2017-07-22] MEDS ORDERED: Lidocaine Hydrochloride 5 ML INJ ONE (09:42)
[2017-07-22] MEDS ORDERED: Lactated Ringer's 1,000 ML IV SCH (09:45)
[2017-07-22 10:21] VITALS: TEMP 98.4
[2017-07-22 15:24] VITALS: BP 119/59; PULSE 66; RESP 15; O2SAT 99
== END 2017-07-22 13:45 | disposition home or self-care (01) ==
LOC: C.ENDO 06:51
PROVIDERS: ATTEND Internal Medicine
DX: K20.8 Other esophagitis (principal); K29.70 Gastritis, unspecified, without bleeding
CPT/HCPCS: 43235; J2704; J7120

== ENCOUNTER 2017-08-16 20:47 | Inpatient (IN) | payer MEDICAID ==
[2017-08-16 20:48] VITALS: BMI 32.3
[2017-08-16] MEDS ORDERED: Albuterol-Ipratrop 3 mg / 0.5 (3 ml) UD ONE ×2 (21:02→21:50)
[2017-08-16] MEDS ORDERED: Albuterol 0.083% Inhal Sol (2.5 mg/3 mL) UD ONE (21:28)
[2017-08-16] MEDS: Albuterol-Ipratrop 3 mg / 0.5 (3 ml) UD IH SCH ×3 (21:30→22:00)
--- NOTE | 2017-08-16 21:30 | C.PDOC ---
History Of Present Illness Patient is a 56 y/o male who presents to the ED with a complaint of SOB worsening over the last few days. Patient admits to smoking daily. Denies any fever or chills. Patient has no other physical complaints at this time. Time Seen by Provider: 08/16/17 21:30 Chief Complaint (Nursing): Shortness Of Breath History Per: Patient History/Exam Limitations: no limitations Onset/Duration Of Symptoms: Days (few days), Worse Since Current Symptoms Are (Timing): Still Present Initiating Event: Upper Respiratory Illness Exacerbating Factor(s): Exertion, Coughing Current Respiratory Medications: See Home Med List Severity: Moderate Pain Scale Rating Of: 4 Associated Symptoms: denies: Fever, Chills Reports Recently: Treated By A Physician, Hospitalized Recent travel outside of the [place]: No Additional History Per: Patient Past Medical History Reviewed: Historical Data, Nursing Documentation, Vital Signs Vital Signs: Last Vital Signs Temp 98.5 F 08/16/17 21:08 Pulse 70 08/16/17 22:35 Resp 16 08/16/17 22:35 BP 147/81 08/16/17 22:35 Pulse Ox 100 08/16/17 22:42 - Medical History PMH: Arthritis, Asthma, Bronchitis, COPD, Gastrointestinal Ulcer, Gall Bladder Disease, HTN, Hypercholesterolemia, Pulmonary Embolism, Chronic Kidney Disease Denies: Alzheimer's Disease, Anemia, Atrial Fibrillation, Cardia Arrhythmia, CHF, Dementia, Emphysema, HIV, Hyperthyroidism, Hypothyroidism, Kidney Stones, Migraine, Mitral Valve Prolapse, Multiple Sclerosis, Parkinson's Disease, Peripheral Edema, Pneumonia, Seizures, Sickle Cell Disease, Sleep Apnea, TIA Surgical History: Hernia Repair Denies: Pacemaker - [facility] Procedures INSERTION OF INTRALUM DEV INTO INF VENA CAVA, PERC APPROACH (08/29/15) INTRODUCE OF OTH THERAP SUBST INTO RESP TRACT, VIA OPENING (06/07/15) INTRODUCTION OF ANTI-INFLAM INTO RESP TRACT, VIA OPENING (06/07/17) INTRODUCTION OF SERUM/TOX/VACCINE INTO MUSCLE, PERC APPROACH (06/07/17) NEBULIZER THERAPY (02/27/15) Family History: States: No Known Family Hx - Social History Hx Tobacco Use: Yes (smokes daily) Hx Alcohol Use: Yes Hx Substance Use: Yes - Immunization History Hx Tetanus Toxoid Vaccination: Yes Hx Influenza Vaccination: Yes Hx Pneumococcal Vaccination: Yes Review Of Systems Constitutional: Negative for: Fever, Chills Eyes: Negative for: Redness ENT: Negative for: Throat Pain Cardiovascular: Negative for: Chest Pain Respiratory: Positive for: Shortness of Breath (worsening over last few days) Gastrointestinal: Negative for: Nausea Genitourinary: Negative for: Dysuria Musculoskeletal: Negative for: Back Pain Skin: Negative for: Rash Neurological: Negative for: Weakness Psych: Negative for: Anxiety Physical Exam - Physical Exam Appears: Well, Non-toxic Skin: Warm, Dry Head: Normacephalic Eye(s): bilateral: Normal Inspection Oral Mucosa: Moist Neck: Supple Chest: Symmetrical Cardiovascular: Rhythm Regular, No Murmur Respiratory: Decreased Breath Sounds, No Rales, No Rhonchi, Wheezing (diffuse, scattered), Other (speaking 3-4 word sentences) Gastrointestinal/Abdominal: Soft, No Tenderness Back: Normal Inspection Extremity: Pedal Edema (trace pedal edema bilaterally), No Calf Tenderness Extremity: Bilateral: Atraumatic Pulses: Left Dorsalis Pedis: Normal, Right Dorsalis Pedis: Normal Neurological/Psych: Oriented x3, Normal Speech, Normal Cognition Gait: Steady ED Course And Treatment - Laboratory Results Result Diagrams: 08/16/17 22:19 08/16/17 22:19 O2 Sat by Pulse Oximetry: 100 Progress Note: EKG, CXR, UA, and blood work ordered. Combivent respimat, medrol , and nebulizer treatment administered. Critical Care Time - Critical Care Note Total Time (in mins): 30 Documented critical care: time excludes all time spent performing seperately billable procedures. Disposition Discussed With : Rickie Altamirano Comment: accepted the pt on his service and took over the care at 11:30PM Doctor Will See Patient In The: Hospital Counseled Patient/Family Regarding: Studies Performed, Diagnosis, Smoking Cessation - Disposition Disposition: HOSPITALIZED Disposition Time: 21:30 Condition: FAIR Forms: [facility] (Portuguese) - POA Present On Arrival: Poor Glycemic Control - Clinical Impression Clinical Impression: COPD with exacerbation, Dyspnea - Scribe Statement The provider has reviewed the documentation as recorded by the Scribe Tierra Paez All medical record entries made by the Scribe were at my direction and personally dictated by me. I have reviewed the chart and agree that the record accurately reflects my personal performance of the history, physical exam, medical decision making, and the department course for this patient. I have also personally directed, reviewed, and agree with the discharge instructions and disposition. Decision To Admit - Pt Status Changed To: Hospital Disposition Of: Inpatient - Admit Certification Admit to Inpatient:: After my assessment, the patient will require hospitalization for at least two midnights. This is because of the severity of symptoms shown, intensity of services needed, and/or the medical risk in this patient being treated as an outpatient. - InPatient: Physician Admission Certification: I certify that this patient requires 2 or more midnights of care for the following reason:: After my assessment, the patient will require hospitalization for at least two midnights. This is because of the severity of symptoms shown, intensity of services needed, and/or the medical risk in this patient being treated as an outpatient. - . Bed Request Type: Regular Admitting Physician: Rickie Altamirano Patient Diagnosis: COPD with exacerbation, Dyspnea
[2017-08-16 22:25] LABS: BASO % 1.1 % (0.0-2.0); EOS # 0.4 K/uL (0.0-0.7); EOS % 9.9 % (0.0-4.0); HEMOGLOBIN 12.1 g/dL (12.0-18.0); LYMPH # 1.1 K/uL (1.0-4.3); LYMPH % 25.1 % (20.0-40.0); MEAN CELL VOLUME 92.1 fL (80.0-94.0); MEAN CORPUSCULAR HEMOGLOBIN 30.6 pg (27.0-31.0); MEAN CORPUSCULAR HGB CONC 33.2 g/dL (33.0-37.0); MEAN PLATELET VOLUME 9.2 fL (7.2-11.7); MONO # 0.4 K/uL (0.0-0.8); MONO % 10.4 % (0.0-10.0); NEUT # 2.2 K/uL (1.8-7.0); NEUT % 53.5 % (50.0-75.0); RBC 3.95 Mil/uL (4.40-5.90); WHITE BLOOD COUNT 4.2 K/uL (4.8-10.8)
[2017-08-16 22:33] LABS: INR 1.1; PROTHROMBIN TIME 12.6 SECONDS (9.7-12.2)
[2017-08-16 22:34] LABS: ALB/GLOB RATIO 1.2 (1.0-2.1); ALBUMIN 4.3 g/dL (3.5-5.0); MAGNESIUM 1.9 mg/dL (1.6-2.3)
[2017-08-16 22:38] LABS: ABG ALLEN TEST YES; ARTERIAL BLOOD GAS HCO3 27.2 mmol/L (21-28); ARTERIAL BLOOD GAS PCO2 62 mm/Hg (35-45); ARTERIAL BLOOD GAS PH 7.31 (7.35-7.45); ARTERIAL BLOOD GAS PO2 60 mm/Hg (80-100); ARTERIAL BLOOD GAS TCO2 33.1 mmol/L (22-28)
[2017-08-17] MEDS ORDERED: MethylPREDNISolone 40 mg Vial IVP SCH (01:00)
[2017-08-17] MEDS: Albuterol-Ipratrop 3 mg / 0.5 (3 ml) UD INH SCH ×5 (05:42→19:57)
--- NOTE | 2017-08-17 07:02 | RAD ---
Chest x-ray single frontal view History: Shortness of breath. Comparison: 05/19/2017 Findings: Mild venous congestion. Blunted bilateral costophrenic angles. Tortuous aorta. Heart size normal limits. Biapical pleural thickening with upper lobe granulomatous changes. Degenerative changes in the spine. Impression: Mild venous congestion. Blunted bilateral costophrenic angles. Tortuous aorta. Heart size normal limits. Biapical pleural thickening with upper lobe granulomatous changes.
[2017-08-17] MEDS: MethylPREDNISolone 40 mg Vial IVP SCH ×3 (07:49→21:00)
[2017-08-17 08:41] LABS: URINE BILIRUBIN NEGATIVE (NEGATIVE); URINE BLOOD NEGATIVE (NEGATIVE); URINE CLARITY Turbid (Clear); URINE COLOR Yellow (YELLOW); URINE GLUCOSE (UA) 1+ mg/dL (Normal); URINE LEUKOCYTE ESTERASE NEG Leu/uL (Negative); URINE NITRATE NEGATIVE (NEGATIVE); URINE PROTEIN NEGATIVE (NEGATIVE); URINE UROBILINOGEN NORMAL mg/dL (0.2-1.0)
[2017-08-17] MEDS ORDERED: Enoxaparin 40 mg Syringe SC SCH (10:00)
[2017-08-18] MEDS: Albuterol-Ipratrop 3 mg / 0.5 (3 ml) UD INH SCH ×6 (00:57→20:11)
[2017-08-18] MEDS: MethylPREDNISolone 40 mg Vial IVP SCH ×4 (02:58→21:23)
[2017-08-19 00:18] VITALS: BP 136/74; PULSE 72; RESP 20; TEMP 98.7; O2SAT 91
[2017-08-19] MEDS: Albuterol-Ipratrop 3 mg / 0.5 (3 ml) UD INH SCH ×4 (03:10→11:19)
[2017-08-19] MEDS: MethylPREDNISolone 40 mg Vial IVP SCH ×3 (03:17→14:13)
--- NOTE | 2017-08-19 08:32 | PN ---
DATE: The patient is on bronchodilators, bed rest, supportive care. Rickie Altamirano MD [facility] # [id number]
--- NOTE | 2017-08-19 08:34 | HP ---
HISTORY OF PRESENT ILLNESS: Patient is a 56-year-old male with history of COPD also complaining of shortness of breath, weakness, fatigue and tiredness. The patient came to the ER, advised admission. PHYSICAL EXAMINATION: GENERAL: The patient is awake, alert and oriented. VITAL SIGNS: Temperature 98, pulse 90. HEENT: Within normal limits. NECK: Supple. CHEST: Symmetrical. HEART: Regular. ABDOMEN: Soft. EXTREMITIES: No edema. IMPRESSION AND PLAN: The patient suffers from chronic obstructive pulmonary disease and bronchitis. The patient is on bedrest, supportive care, bronchodilators. Rickie Altamirano MD
--- NOTE | 2017-08-19 09:28 | CP.PCM.PN ---
Subjective - Date & Time of Evaluation Date of Evaluation: 08/19/17 Time of Evaluation: 07:45 - Subjective Subjective: PGY2 Medicine Note - Dr. Altamirano This 56 year old male with PMHx of COPD, arthritis, Htn, Hld, hx of bilateral DVT, hx of PE, s/p IVC filter, history of kidney failure - presents c/o SOB worsening over the last few days. Patient admits to smoking daily. Denies any fever or chills. Patient reports he is compliant with his home medications. Patient has no other physical complaints at this time. Patient seen and examined at bedside this AM. Tolerating diet and having normal BM's. Reports feeling much better, breathing is much improved. Denies any acute complaints on 12 point ROS. ----- Patient is stable for discharge per Dr. Altamirano. Patient should resume all medications as outlined in this document. Additionally, patient should take the new medications listed below (scripts provided). Please make an appointment and follow up with your Primary Doctor within one week of discharge. Patient should return to ED immediately if symptoms return or worsen. Instructions discussed with patient who understood and agreed. Newly prescribed medications: e-Prescribed to - [facility], [address] [facility] [address]; [phone] Medrol Dose Pack - take as directed Objective - Vital Signs/Intake and Output Vital Signs (last 24 hours): Temp Pulse Resp BP Pulse Ox 98.7 F 72 20 136/74 91 L 08/18/17 23:00 08/18/17 23:00 08/18/17 23:00 08/18/17 23:00 08/18/17 23:00 - Medications Medications: Current Medications Albuterol/Ipratropium (Duoneb 3 Mg/0.5 Mg (3 Ml) Ud) 3 ml INH RQ4 [facility] Last Admin: 08/19/17 07:27 Dose: 3 ml Apixaban (Eliquis) 5 mg PO BID [facility] Last Admin: 08/19/17 09:09 Dose: 5 mg Methylprednisolone (Solu-Medrol) 40 mg IVP Q6H [facility] Last Admin: 08/19/17 08:51 Dose: 40 mg - Labs Labs: 08/16/17 22:19 08/16/17 22:19 PT 12.6 SECONDS (9.7-12.2) H 08/16/17 22:19 INR 1.1 08/16/17 22:19 APTT 34 SECONDS (21-34) 08/16/17 22:19 - Additional Findings Additional findings: - Constitutional Appears: Non-toxic, No Acute Distress, Older Than Stated Age - Head Exam Head Exam: ATRAUMATIC, NORMAL INSPECTION, NORMOCEPHALIC - Eye Exam Pupil Exam: NORMAL ACCOMODATION - ENT Exam ENT Exam: Mucous Membranes Moist - Respiratory Exam Respiratory Exam: Clear to Ausculation Bilateral, Wheezes (improved), NORMAL BREATHING PATTERN. absent: Prolonged Expiratory Phase, Rhonchi - Cardiovascular Exam Cardiovascular Exam: REGULAR RHYTHM, +S1, +S2 - GI/Abdominal Exam GI & Abdominal Exam: Soft, Normal Bowel Sounds. absent: Tenderness, Diminished Bowel Sounds, Hypoactive Bowel Sounds, Pulsatile Mass - Extremities Exam Extremities Exam: Normal Capillary Refill - Neurological Exam Neurological Exam: Alert, Awake, Oriented x3 - Psychiatric Exam Psychiatric exam: Normal Affect, Normal Mood - Skin Skin Exam: Dry, Intact, Normal Color, Warm Assessment and Plan - Assessment and Plan (Free Text) Assessment: COPD exacerbation 08/19: breathing much improved. Grossly CTA on lung exam, mild wheezes CXR Negative Started on Solumedrol 40mg IVP Q6h Duoneb INH Q4h Hypertension started on home med: Norvasc 10mg PO Daily Echo from 09/11/16- EF 65-70%, mild to mod tricuspid regurg and pulm htn Hx of DVTs/PE On home med: Eliquis 5mg PO BID s/p IVC in place Prophylactic Measure On Eliquis 5mg pO BID All management as per Dr. Altamirano.
[2017-08-19 11:38] LABS: HEMOGLOBIN 11.6 g/dL (12.0-18.0); LYMPH # 0.3 K/uL (1.0-4.3); LYMPH % 3.6 % (20.0-40.0); MEAN CELL VOLUME 92.7 fL (80.0-94.0); MEAN CORPUSCULAR HGB CONC 33.4 g/dL (33.0-37.0); MONO # 0.2 K/uL (0.0-0.8); MONO % 2.6 % (0.0-10.0); NEUT # 8.8 K/uL (1.8-7.0); NEUT % 93.8 % (50.0-75.0); NRBC % 0.1 % (0.0-2.0); PLATELET COUNT 208 K/uL (130-400); RBC 3.75 Mil/uL (4.40-5.90); RED CELL DISTRIBUTION WIDTH 14.8 % (11.5-14.5)
[2017-08-19 11:42] LABS: WHITE BLOOD COUNT 9.4 K/uL (4.8-10.8)
[2017-08-19 11:45] LABS: ALB/GLOB RATIO 1.2 (1.0-2.1); ALBUMIN 3.5 g/dL (3.5-5.0); ALT/SGPT 14 U/L (21-72); AST/SGOT 14 U/L (17-59); BLOOD UREA NITROGEN 18 mg/dL (9-20); CALCIUM 8.8 mg/dl (8.6-10.4); GFR AFRICAN-AMERICAN > 60; GFR NON-AFRICAN AMERICAN > 60
[2017-08-19 12:16] LABS: LYMPHOCYTE 4 % (20-40); MONOCYTE 3 % (0-10); NEUTROPHIL 93 % (50-75); PLATELET ESTIMATE NORMAL (NORMAL); TOTAL CELLS COUNTED 100
== END 2017-08-19 14:25 | disposition home or self-care (01) | DRG 88 ==
LOC: C.ER 20:47 → C.6T 23:31
PROVIDERS: ADMIT Internal Medicine Pulmonary Disease; ATTEND Internal Medicine Pulmonary Disease
DX: J44.1 Chronic obstructive pulmonary disease with (acute) exacerbation (principal); I27.20 Pulmonary hypertension, unspecified; N18.9 Chronic kidney disease, unspecified; I12.9 Hypertensive chronic kidney disease with stage 1 through stage 4 chronic kidney disease, or unspecified chronic kidney disease; Z86.711 Personal history of pulmonary embolism; F17.200 Nicotine dependence, unspecified, uncomplicated; E78.5 Hyperlipidemia, unspecified; Z86.718 Personal history of other venous thrombosis and embolism

== ENCOUNTER 2018-05-08 14:44 | Inpatient (IN) | payer MEDICAID ==
[2018-05-08 14:50] VITALS: BMI 29.0
[2018-05-08] MEDS ORDERED: Albuterol-Ipratrop 3 mg / 0.5 (3 ml) UD ONE ×2 (14:54→16:03)
[2018-05-08] MEDS ORDERED: Albuterol-Ipratrop 3 mg / 0.5 (3 ml) UD INH STA ×2 (14:57→16:00)
[2018-05-08] MEDS ORDERED: MethylPREDNISolone 40 mg Vial IVP STA (15:28)
[2018-05-08 15:48] LABS: BASO % 0.6 % (0.0-2.0); EOS # 0.1 K/uL (0.0-0.7); EOS % 2.5 % (0.0-4.0); HEMOGLOBIN 13.2 g/dL (12.0-18.0); LYMPH # 1.3 K/uL (1.0-4.3); LYMPH % 24.8 % (20.0-40.0); MEAN CORPUSCULAR HGB CONC 33.3 g/dL (33.0-37.0); MEAN PLATELET VOLUME 8.7 fL (7.2-11.7); MONO # 0.9 K/uL (0.0-0.8); MONO % 18.1 % (0.0-10.0); NEUT # 2.7 K/uL (1.8-7.0); NRBC % 0.2 % (0.0-2.0); RBC 4.26 Mil/uL (4.40-5.90)
[2018-05-08 16:03] LABS: ALB/GLOB RATIO 1.3 (1.0-2.1); ALBUMIN 4.5 g/dL (3.5-5.0); CALCIUM 8.8 mg/dl (8.6-10.4)
--- NOTE | 2018-05-08 16:10 | RAD ---
HISTORY: SOB COMPARISON: Chest x-ray performed 08/16/17 TECHNIQUE: Chest PA and lateral FINDINGS: LUNGS: No focal consolidation. Please note that chest x-ray has limited sensitivity for the detection of pulmonary masses. PLEURA: No significant pleural effusion identified. No definite pneumothorax . CARDIOVASCULAR: Heart size appears within normal limits. Atherosclerotic calcification present. OSSEOUS STRUCTURES: No acute osseous abnormality identified. VISUALIZED UPPER ABDOMEN: Unremarkable. OTHER FINDINGS: None. IMPRESSION: No focal consolidation.
[2018-05-08 16:50] LABS: ARTERIAL BLOOD GAS HCO3 22.7 mmol/L (21-28); ARTERIAL BLOOD GAS HEMOGLOBIN 12.3 g/dL (11.7-17.4); ARTERIAL BLOOD GAS PCO2 51 mm/Hg (35-45); ARTERIAL BLOOD GAS PH 7.29 (7.35-7.45); ARTERIAL BLOOD GAS PO2 63 mm/Hg (80-100); ARTERIAL BLOOD GAS TCO2 26.1 mmol/L (22-28)
--- NOTE | 2018-05-08 17:34 | C.PDOC ---
History Of Present Illness 57 year old male, whose past medical history includes COPD, presents to the ED for evaluation of worsening shortness of breath since yesterday. Patient recent underwent admission at [facility] for COPD exacerbation from 04/28- 05/02. Patient denies fever, chills. He admits to social history of smoking. Time Seen by Provider: 05/08/18 15:04 Chief Complaint (Nursing): Respiratory Distress History Per: Patient History/Exam Limitations: no limitations Onset/Duration Of Symptoms: Days Current Symptoms Are (Timing): Worse Quality: denies: "Pain" Current Respiratory Medications: See Home Med List Associated Symptoms: denies: Fever, Chills Additional History Per: Patient Past Medical History Reviewed: Historical Data, Nursing Documentation, Vital Signs Vital Signs: Last Vital Signs Temp 97.7 F 05/08/18 14:53 Pulse 87 05/08/18 15:10 Resp 19 05/08/18 17:19 BP 141/91 H 05/08/18 15:10 Pulse Ox 98 05/08/18 17:19 - Medical History PMH: Arthritis, Asthma, Bronchitis, COPD, Deep Vein Thrombosis, Gastrointestinal Ulcer, Gall Bladder Disease, HTN, Hypercholesterolemia, Pulmonary Embolism, Chronic Kidney Disease Denies: Alzheimer's Disease, Anemia, Atrial Fibrillation, Cardia Arrhythmia, CHF, Dementia, Emphysema, HIV, Hyperthyroidism, Hypothyroidism, Kidney Stones, Migraine, Mitral Valve Prolapse, Multiple Sclerosis, Parkinson's Disease, Peripheral Edema, Pneumonia, Seizures, Sickle Cell Disease, Sleep Apnea, TIA Surgical History: Hernia Repair Denies: Pacemaker - [facility] Procedures INSERTION OF INTRALUM DEV INTO INF VENA CAVA, PERC APPROACH (08/29/15) INTRODUCE OF OTH THERAP SUBST INTO RESP TRACT, VIA OPENING (06/07/15) INTRODUCTION OF ANTI-INFLAM INTO RESP TRACT, VIA OPENING (04/30/18) INTRODUCTION OF SERUM/TOX/VACCINE INTO MUSCLE, PERC APPROACH (06/07/17) NEBULIZER THERAPY (02/27/15) Family History: States: Unknown Family Hx - Social History Hx Tobacco Use: Yes (smokes daily) Hx Alcohol Use: No Hx Substance Use: Yes (Use Heroin) - Immunization History Hx Tetanus Toxoid Vaccination: Yes Hx Influenza Vaccination: No Hx Pneumococcal Vaccination: Yes Review Of Systems Constitutional: Negative for: Fever, Chills Respiratory: Positive for: Shortness of Breath Physical Exam - Physical Exam Appears: Non-toxic, No Acute Distress, Other (tobacco odor noted ) Skin: Normal Color, Warm, Dry Head: Atraumatic, Normacephalic Eye(s): bilateral: Normal Inspection Oral Mucosa: Moist Neck: Supple Chest: Symmetrical, No Deformity, No Tenderness Cardiovascular: Rhythm Regular, No Murmur Respiratory: No Rales, No Rhonchi, Wheezing (bilateral inspiratory and expiratory ), Other (audible wheezing, tachypneic ) Gastrointestinal/Abdominal: Soft, No Tenderness, No Guarding, No Rebound Extremity: Normal ROM, Capillary Refill (less than 2 seconds ), No Swelling Neurological/Psych: Oriented x3, Normal Speech, Normal Cognition ED Course And Treatment - Laboratory Results Result Diagrams: 05/08/18 15:41 05/08/18 15:41 O2 Sat by Pulse Oximetry: 98 (on RA) Pulse Ox Interpretation: Normal - Other Rad CXR X-Ray: Viewed By Me, Read By Radiologist Interpretation: IMPRESSION: No focal consolidation. Medical Decision Making Medical Decision Making: Impression: 57 year old male with shortness of breath Plan: * bloodwork * urinalysis * CXR * EKG * Duoneb INH * Solu-Medrol IVP * reassess and disposition Progress: Bloodwork, urinalysis, CXR, and EKG ordered and reviewed. Duoneb INH and Solu-Medrol IVP given. 17:[address] Sarabia, who accepts the patient for admission. 17:20 Case discussed with medical photographer, Dr. Martel. Disposition Discussed With Dr.: Fabian Sarabia Jr. Doctor Will See Patient In The: Hospital - Disposition Disposition: HOSPITALIZED Disposition Time: 17:57 Condition: FAIR Forms: [facility] (Khmer) - Clinical Impression Clinical Impression: COPD with acute exacerbation, Renal insufficiency - PA / RESIDENTIAL REAL ESTATE AGENT / Resident Statement MD/DO has reviewed & agrees with the documentation as recorded. - Scribe Statement The provider has reviewed the documentation as recorded by the Scribe (Melissa Trejo) All medical record entries made by the Scribe were at my direction and personally dictated by me. I have reviewed the chart and agree that the record accurately reflects my personal performance of the history, physical exam, medical decision making, and the department course for this patient. I have also personally directed, reviewed, and agree with the discharge instructions and disposition.
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
[2018-05-08 18:30] LABS: SQUAMOUS EPITHIAL 2 /hpf (0-5); URINE BILIRUBIN NEGATIVE (NEGATIVE); URINE BLOOD NEGATIVE (NEGATIVE); URINE CLARITY Hazy (Clear); URINE COLOR Yellow (YELLOW); URINE GLUCOSE (UA) NORMAL (Normal); URINE HYALINE CAST >20 /lpf (0-2); URINE LEUKOCYTE ESTERASE NEG Leu/uL (Negative); URINE PROTEIN NEGATIVE (NEGATIVE); URINE UROBILINOGEN NORMAL mg/dL (0.2-1.0)
[2018-05-08 18:43] LABS: BARBITURATES, UR NEGATIVE (NEGATIVE); BENZODIAZEPINES, UR NEGATIVE (NEGATIVE); PHENCYCLIDINE, UR NEGATIVE (NEGATIVE)
[2018-05-08 18:44] LABS: OPIATES, UR POSITIVE (NEGATIVE)
[2018-05-08] MEDS: Albuterol-Ipratrop 3 mg / 0.5 (3 ml) UD INH SCH (19:29)
[2018-05-08] MEDS ORDERED: Ipratropium 0.02% Inhal Soln (0.5 mg/2.5 ml) UD IH SCH (20:00)
[2018-05-08] MEDS: MethylPREDNISolone 40 mg Vial IVP SCH (23:00)
[2018-05-09] MEDS: Albuterol-Ipratrop 3 mg / 0.5 (3 ml) UD INH SCH ×6 (00:55→19:02)
[2018-05-09] MEDS: MethylPREDNISolone 40 mg Vial IVP SCH ×3 (05:25→22:50)
--- NOTE | 2018-05-09 09:12 | CP.PCM.PN ---
Subjective - Date & Time of Evaluation Date of Evaluation: 05/09/18 Time of Evaluation: 09:12 - Subjective Subjective: PGY-[address] Sarabia Patient seen and examined at bedside. No acute events overnight per nursing. Patient states his shortness of breath has improved significantly from yesterday. Patient states that he does continues to smoke, and uses heroin intranasally (does not inject). Last used heroin on Saturday. Patient refused AM labs. Patient denies chest pain, headache, dizziness, nausea, vomiting, abdominal pain, fever, fatigue. Objective - Vital Signs/Intake and Output Vital Signs (last 24 hours): Temp Pulse Resp BP Pulse Ox 97.9 F 63 18 137/72 97 05/09/18 07:00 05/09/18 08:12 05/09/18 07:00 05/09/18 07:00 05/09/18 07:00 Intake and Output: 05/09/18 05/09/18 06:59 18:59 Intake Total 420 Balance 420 - Medications Medications: Current Medications Albuterol/Ipratropium (Duoneb 3 Mg/0.5 Mg (3 Ml) Ud) 2.5 ml INH RQ4 [facility] Last Admin: 05/09/18 07:40 Dose: 2.5 ml Apixaban (Eliquis) 5 mg PO BID [facility] Methylprednisolone (Solu-Medrol) 60 mg IVP Q8 [facility] Stop: 05/11/18 06:01 Last Admin: 05/09/18 05:25 Dose: 60 mg - Labs Labs: 05/08/18 15:41 05/08/18 15:41 - Constitutional Appears: Non-toxic, No Acute Distress - Head Exam Head Exam: ATRAUMATIC, NORMAL INSPECTION - Eye Exam Eye Exam: EOMI, Normal appearance - ENT Exam ENT Exam: Mucous Membranes Moist - Respiratory Exam Respiratory Exam: Wheezes (Diffuse wheezing). absent: Rales, Rhonchi, Respiratory Distress Additional comments: On face mask - Cardiovascular Exam Cardiovascular Exam: REGULAR RHYTHM, +S1, +S2 - GI/Abdominal Exam GI & Abdominal Exam: Soft, Normal Bowel Sounds. absent: Tenderness - Extremities Exam Extremities Exam: Normal Inspection. absent: Pedal Edema, Tenderness - Neurological Exam Neurological Exam: Alert, Awake, CN II-XII Intact, Oriented x3 - Psychiatric Exam Psychiatric exam: Normal Affect, Normal Mood - Skin Skin Exam: Dry, Intact, Normal Color, Warm Assessment and Plan - Assessment and Plan (Free Text) Assessment: HIV negative F/u LDH 57 y/o male with COPD/asthma, BPH, HTN and DVT presents for SOB consistent with COPD exacerbation. COPD exacerbation -CXR admission 05/08: negative -EKG admission 05/08: LVH -solumedrol 60 mg q8h IVPB -duonebs -telemetry -been on 2L NC; can start as baseline, maintain O2>92% -consulted Dr. Verdin, pulm, recs appreciated -LDH WNL Hx of DVT -eliquis 5 mg BID -consider PE work up Tobacco Dependence -patient desires to quit -consider nicotine patch -consider smoking cessation counseling Heroin abuse -consider psych consult for possible methadone treatment -monitor for withdrawal symptoms -HIV 1 and 2 negative -Psych consulted, Dr. Foster. Help appreciated. Hx of BPH -Home med restarted --Flomax .4mg pO daily Hx of HTN -Home med verified with pharmacy --Norvasc 10 mg PO daily dispo: Shortness of breath improving, continue to monitor case d/w Dr. No Galloway DO PGY1
--- NOTE | 2018-05-09 12:57 | CP.PCM.CON ---
History of Present Illness - History of Present Illness History of Present Illness: Patient is a 57-year-old male with PMHx of COPD, asthma, HTN, DVT, and BPH who was admitted for shortness of breath and chest tightness. Patient states that he was going home from [place] yesterday and felt SOB along with chest tightness so he came to the ED. He states that he had the same episode 1 week ago and was hospitalized for COPD exacerbation in [place]. Patient admitted to some headache, dry cough, and wheezing yesterday. Denies any nausea, vomiting, abdominal pain, or chest pain. During examination, patient lying comfortably in bed. States his shortness of breath has improved a lot since yesterday but admits to cough. On 2L NC. CXR 05/08 - No focal consolidation. PMHx: COPD, asthma, HTN, BPH, DVT, renal failure PSHx: surgery for his kidney, abdominal hernia repair Allergies: NKDA Social Hx: Smokes 1-1.5 PPD since age 13; drinks alcohol socially; inhales heroin once a day x5 years Review of Systems - Review of Systems All systems: reviewed and no additional remarkable complaints except (Complaining of shortness of breath) Past Patient History - Infectious Disease Hx of Infectious Diseases: None - Past Medical History & Family History Past Medical History?: Yes - Past Social History Smoking Status: Light Smoker < 10 Cigarettes Daily - CARDIAC Hx Atrial Fibrillation: No Hx Cardia Arrhythmia: No Hx Congestive Heart Failure: No Hx Hypercholesterolemia: Yes Hx Hypertension: Yes Hx Mitral Valve Prolapse: No Hx Pacemaker: No Hx Peripheral Edema: No - PULMONARY Hx Asthma: Yes Hx Bronchitis: Yes Hx Chronic Obstructive Pulmonary Disease (COPD): Yes Hx Emphysema: No Hx Pneumonia: No Hx Pulmonary Embolism: Yes Hx Sleep Apnea: No - NEUROLOGICAL Hx Alzheimer's Disease: No Hx Dementia: No Hx Migraine: No Hx Multiple Sclerosis: No Hx Parkinson's Disease: No Hx Seizures: No Hx Transient Ischemic Attacks (TIA): No - HEENT Hx HEENT Problems: No Hx Blind: No Hx Cataracts: No Hx Deafness: No Hx Difficulty Chewing: No Hx Epistaxis: No Hx Glaucoma: No Hx Macular Degeneration: No Other/Comment: uses eye glasses - RENAL Hx Chronic Kidney Disease: Yes Hx Kidney Stones: No - ENDOCRINE/METABOLIC Hx Hyperthyroidism: No Hx Hypothyroidism: No - HEMATOLOGICAL/ONCOLOGICAL Hx Anemia: No Hx Human Immunodeficiency Virus (HIV): No Hx Sickle Cell Disease: No - INTEGUMENTARY Hx Dermatological Problems: Yes Other/Comment: skin very dry - MUSCULOSKELETAL/RHEUMATOLOGICAL Hx Arthritis: Yes - GASTROINTESTINAL Hx Gall Bladder Disease: Yes - GENITOURINARY/GYNECOLOGICAL Hx Genitourinary Disorders: No - PSYCHIATRIC Hx Substance Use: Yes (Use Heroin) - SURGICAL HISTORY Hx Surgeries: Yes Hx Herniorrhaphy: Yes (left) Hx Musculoskeletal Surgery: Yes (LEFT KNEE) Other/Comment: collapsed lung - ANESTHESIA Hx Anesthesia: Yes Hx Anesthesia Reactions: No Hx Malignant Hyperthermia: No Meds Allergies/Adverse Reactions: Allergies Allergy/AdvReac Type Severity Reaction Status Date / Time No Known Allergies Allergy Verified 05/08/18 14:49 - Medications Medications: Current Medications Albuterol/Ipratropium (Duoneb 3 Mg/0.5 Mg (3 Ml) Ud) 2.5 ml INH RQ4 [facility] Last Admin: 05/09/18 11:40 Dose: 2.5 ml Amlodipine Besylate (Norvasc) 10 mg PO DAILY [facility] Last Admin: 05/09/18 09:48 Dose: 10 mg Apixaban (Eliquis) 5 mg PO BID [facility] Last Admin: 05/09/18 09:48 Dose: 5 mg Methylprednisolone (Solu-Medrol) 60 mg IVP Q8 [facility] Stop: 05/11/18 06:01 Last Admin: 05/09/18 05:25 Dose: 60 mg Tamsulosin HCl (Flomax) 0.4 mg PO DAILY [facility] Last Admin: 05/09/18 09:48 Dose: 0.4 mg Physical Exam - Head Exam Head Exam: ATRAUMATIC, NORMOCEPHALIC - ENT Exam ENT Exam: Mucous Membranes Moist - Neck Exam Neck exam: Positive for: Normal Inspection - Respiratory Exam Respiratory Exam: Decreased Breath Sounds - Cardiovascular Exam Cardiovascular Exam: REGULAR RHYTHM - GI/Abdominal Exam GI & Abdominal Exam: Normal Bowel Sounds - Extremities Exam Extremities exam: Positive for: normal inspection - Neurological Exam Neurological exam: Alert Results - Vital Signs Recent Vital Signs: Last Vital Signs Temp 97.9 F 05/09/18 07:00 Pulse 67 05/09/18 11:30 Resp 18 05/09/18 07:00 BP 137/72 05/09/18 07:00 Pulse Ox 97 05/09/18 07:00 - Labs Result Diagrams: 05/08/18 15:41 05/08/18 15:41 Labs: Laboratory Results - last 24 hr 05/08/18 05/08/18 05/08/18 15:41 15:41 16:48 WBC 5.0 RBC 4.26 L Hgb 13.2 Hct 39.7 MCV 93.0 MCH 31.0 MCHC 33.3 RDW 16.0 H Plt Count 206 MPV 8.7 Neut % (Auto) 54.0 Lymph % (Auto) 24.8 Morrill % (Auto) 18.1 H Eos % (Auto) 2.5 Baso % (Auto) 0.6 Neut # (Auto) 2.7 Lymph # (Auto) 1.3 Morrill # (Auto) 0.9 H Eos # (Auto) 0.1 Baso # (Auto) 0.0 Puncture Site Rb pCO2 51 H pO2 63 L HCO3 22.7 ABG pH 7.29 L ABG Total CO2 26.1 ABG O2 Saturation 95.0 ABG Base Excess -2.6 L ABG Hemoglobin 12.3 ABG Carboxyhemoglobin 4.5 H POC ABG HHb (Measured) 4.7 ABG Methemoglobin 1.4 Mohan Test Na A-a O2 Difference 23.0 Respiratory Index 0.4 Hgb O2 Saturation 89.3 L FiO2 21.0 Sodium 133 Potassium 5.0 Chloride 94 L Carbon Dioxide 25 Anion Gap 19 BUN 33 H Creatinine 1.7 H Est GFR ( Amer) 50 Est GFR (Non-Af Amer) 41 Random Glucose 117 H Calcium 8.8 Phosphorus Magnesium Total Bilirubin 0.6 AST 28 ALT 22 Alkaline Phosphatase 70 Lactate Dehydrogenase NT-Pro-B Natriuret Pep 75.0 Total Protein 8.0 Albumin 4.5 Globulin 3.5 Albumin/Globulin Ratio 1.3 Urine Color Urine Clarity Urine pH Ur Specific Pinch Urine Protein Urine Glucose (UA) Urine Ketones Urine Blood Urine Nitrate Urine Bilirubin Urine Urobilinogen Ur Leukocyte Esterase Urine WBC (Auto) Ur Squamous Epith Cells Hyaline Casts Urine Opiates Screen Urine Methadone Screen Ur Barbiturates Screen Ur Phencyclidine Scrn Ur Amphetamines Screen U Benzodiazepines Scrn U Oth Cocaine Metabols U Cannabinoids Screen HIV 1&2 Antibody Screen 05/08/18 05/08/18 05/08/18 18:20 18:20 19:35 WBC RBC Hgb Hct MCV MCH MCHC RDW Plt Count MPV Neut % (Auto) Lymph % (Auto) Morrill % (Auto) Eos % (Auto) Baso % (Auto) Neut # (Auto) Lymph # (Auto) Morrill # (Auto) Eos # (Auto) Baso # (Auto) Puncture Site pCO2 pO2 HCO3 ABG pH ABG Total CO2 ABG O2 Saturation ABG Base Excess ABG Hemoglobin ABG Carboxyhemoglobin POC ABG HHb (Measured) ABG Methemoglobin Mohan Test A-a O2 Difference Respiratory Index Hgb O2 Saturation FiO2 Sodium Potassium Chloride Carbon Dioxide Anion Gap BUN Creatinine Est GFR ( Amer) Est GFR (Non-Af Amer) Random Glucose Calcium Phosphorus Magnesium Total Bilirubin AST ALT Alkaline Phosphatase Lactate Dehydrogenase 502 NT-Pro-B Natriuret Pep Total Protein Albumin Globulin Albumin/Globulin Ratio Urine Color Yellow Urine Clarity Hazy Urine pH 5.0 Ur Specific Pinch 1.020 Urine Protein Negative Urine Glucose (UA) Normal Urine Ketones Negative Urine Blood Negative Urine Nitrate Negative Urine Bilirubin Negative Urine Urobilinogen Normal Ur Leukocyte Esterase Neg Urine WBC (Auto) 1 Ur Squamous Epith Cells 2 Hyaline Casts >20 H Urine Opiates Screen Positive H Urine Methadone Screen Negative Ur Barbiturates Screen Negative Ur Phencyclidine Scrn Negative Ur Amphetamines Screen Negative U Benzodiazepines Scrn Negative U Oth Cocaine Metabols Negative U Cannabinoids Screen Negative HIV 1&2 Antibody Screen 05/08/18 05/09/18 19:35 10:45 WBC RBC Hgb Hct MCV MCH MCHC RDW Plt Count MPV Neut % (Auto) Lymph % (Auto) Morrill % (Auto) Eos % (Auto) Baso % (Auto) Neut # (Auto) Lymph # (Auto) Morrill # (Auto) Eos # (Auto) Baso # (Auto) Puncture Site pCO2 pO2 HCO3 ABG pH ABG Total CO2 ABG O2 Saturation ABG Base Excess ABG Hemoglobin ABG Carboxyhemoglobin POC ABG HHb (Measured) ABG Methemoglobin Mohan Test A-a O2 Difference Respiratory Index Hgb O2 Saturation FiO2 Sodium Potassium Chloride Carbon Dioxide Anion Gap BUN Creatinine Est GFR ( Amer) Est GFR (Non-Af Amer) Random Glucose Calcium Phosphorus 3.7 Magnesium 2.3 Total Bilirubin AST ALT Alkaline Phosphatase Lactate Dehydrogenase NT-Pro-B Natriuret Pep Total Protein Albumin Globulin Albumin/Globulin Ratio Urine Color Urine Clarity Urine pH Ur Specific Pinch Urine Protein Urine Glucose (UA) Urine Ketones Urine Blood Urine Nitrate Urine Bilirubin Urine Urobilinogen Ur Leukocyte Esterase Urine WBC (Auto) Ur Squamous Epith Cells Hyaline Casts Urine Opiates Screen Urine Methadone Screen Ur Barbiturates Screen Ur Phencyclidine Scrn Ur Amphetamines Screen U Benzodiazepines Scrn U Oth Cocaine Metabols U Cannabinoids Screen HIV 1&2 Antibody Screen Negative Assessment & Plan (1) COPD with acute exacerbation Status: Acute Comment: nebulizer treatment. IV steroids. Antibiotics. Will need pulmonary function test. acetylcytiene
--- NOTE | 2018-05-09 14:39 | PCM.PSYCH ---
Initial Psychiatric Evaluation - Initial Psychiatric Evaluation Type of Admission: Voluntary Legal Status: Capacity History of Present Illness and Precipitating Events: Pt is seen, chart reviewed He doesn't want and seem to need detox or psych meds No wdw symptoms Full note to follow sign off Current Medications: Active Medications Generic Name Dose Route Start Last Admin Trade Name Stevenq PRN Reason Stop Dose Admin Albuterol/Ipratropium 2.5 ml 05/08/18 20:00 05/09/18 11:40 Duoneb 3 Mg/0.5 Mg (3 Ml) Ud INH 2.5 ml RQ4 [facility] Administration Amlodipine Besylate 10 mg 05/09/18 10:00 05/09/18 09:48 Norvasc PO 10 mg DAILY [facility] Administration Apixaban 5 mg 05/08/18 20:56 05/09/18 09:48 Eliquis PO 5 mg BID [facility] Administration Methylprednisolone 60 mg 05/08/18 22:00 05/09/18 13:45 Solu-Medrol IVP 05/11/18 06:01 60 mg Q8 [facility] Administration Tamsulosin HCl 0.4 mg 05/09/18 10:00 05/09/18 09:48 Flomax PO 0.4 mg DAILY [facility] Administration Past Psychiatric History - Past Psychiatric History Pertinent Medical Hx (Current Medical&Sleep Prob, Allergies): Allergies Allergy/AdvReac Type Severity Reaction Status Date / Time No Known Allergies Allergy Verified 05/08/18 14:49 Albuterol Sulfate [Ventolin Hfa] 2 puff IH Q6 PRN 04/29/18 Apixaban [Eliquis] 5 mg PO Q12 04/29/18 Pantoprazole Sodium [Protonix] 40 mg PO DAILY 04/29/18 Tamsulosin [Flomax] 0.4 mg PO QPM 04/29/18 Tiotropium [Spiriva] 18 mcg IH DAILY 04/29/18 amLODIPine [Norvasc] 10 mg PO DAILY 04/29/18 Albuterol/Ipratropium [Duoneb 3 mg/0.5 mg (3 ml) UD] 3 ml NEB RQID #90 neb 05/02/18
--- NOTE | 2018-05-09 19:52 | CARD ---
APPROVED REPORT Date of service: 05/08/2018 EKG Measurement Heart [id number] <Conclusion> Normal sinus rhythm Left anterior fascicular block Moderate voltage criteria for LVH, may be normal variant Abnormal ECG
[2018-05-10] MEDS: Albuterol-Ipratrop 3 mg / 0.5 (3 ml) UD INH SCH ×6 (01:31→23:33)
[2018-05-10] MEDS: MethylPREDNISolone 40 mg Vial IVP SCH ×3 (05:56→22:26)
[2018-05-10 11:14] LABS: BASO % 0.1 % (0.0-2.0); HEMOGLOBIN 12.7 g/dL (12.0-18.0); LYMPH # 0.4 K/uL (1.0-4.3); LYMPH % 5.5 % (20.0-40.0); MEAN CELL VOLUME 92.7 fL (80.0-94.0); MEAN CORPUSCULAR HEMOGLOBIN 30.6 pg (27.0-31.0); MEAN PLATELET VOLUME 9.2 fL (7.2-11.7); MONO # 0.2 K/uL (0.0-0.8); NEUT # 6.4 K/uL (1.8-7.0); NEUT % 91.4 % (50.0-75.0); PLATELET COUNT 205 K/uL (130-400); RBC 4.16 Mil/uL (4.40-5.90)
[2018-05-10 11:34] LABS: ALB/GLOB RATIO 1.4 (1.0-2.1); ALT/SGPT 18 U/L (21-72); AST/SGOT 17 U/L (17-59); BLOOD UREA NITROGEN 25 mg/dL (9-20); CALCIUM 9.3 mg/dl (8.6-10.4); GFR NON-AFRICAN AMERICAN > 60
[2018-05-10 11:35] LABS: LYMPHOCYTE 6 % (20-40); MONOCYTE 3 % (0-10); NEUTROPHIL 91 % (50-75); PLATELET ESTIMATE NORMAL (NORMAL); TOTAL CELLS COUNTED 100
[2018-05-10 11:36] LABS: ANISOCYTOSIS SLIGHT; LARGE PLATELETS PRESENT; OVALOCYTES SLIGHT; POIKILOCYTOSIS SLIGHT; TOXIC GRANULATION PRESENT
--- NOTE | 2018-05-10 11:45 | CP.PCM.PN ---
Subjective - Date & Time of Evaluation Date of Evaluation: 05/10/18 Time of Evaluation: 11:45 - Subjective Subjective: Progress note for Dr. Sarabia's service Patient seen and examined at bedside. He states he feels better than before. He denies fevers, chills, chest pain, headache, dizziness, nausea, vomiting, leg pain. He is sleeping comfortably with no complaints at this time. Objective - Vital Signs/Intake and Output Vital Signs (last 24 hours): Temp Pulse Resp BP Pulse Ox 98.5 F 79 20 151/82 H 94 L 05/10/18 07:00 05/10/18 07:00 05/10/18 07:00 05/10/18 07:00 05/10/18 07:00 Intake and Output: 05/10/18 05/10/18 06:59 18:59 Intake Total 60 Balance 60 - Medications Medications: Current Medications Albuterol/Ipratropium (Duoneb 3 Mg/0.5 Mg (3 Ml) Ud) 2.5 ml INH RQ4 [facility] Last Admin: 05/10/18 04:27 Dose: Not Given Amlodipine Besylate (Norvasc) 10 mg PO DAILY [facility] Last Admin: 05/10/18 10:40 Dose: 10 mg Apixaban (Eliquis) 5 mg PO BID [facility] Last Admin: 05/10/18 10:40 Dose: 5 mg Methylprednisolone (Solu-Medrol) 60 mg IVP Q8 [facility] Stop: 05/11/18 06:01 Last Admin: 05/10/18 05:56 Dose: 60 mg Tamsulosin HCl (Flomax) 0.4 mg PO DAILY [facility] Last Admin: 05/10/18 10:40 Dose: 0.4 mg - Labs Labs: 05/10/18 11:02 05/10/18 11:02 - Constitutional Appears: Non-toxic, No Acute Distress - Head Exam Head Exam: ATRAUMATIC, NORMOCEPHALIC - Eye Exam Eye Exam: EOMI - ENT Exam ENT Exam: Mucous Membranes Moist - Neck Exam Neck Exam: Full ROM - Respiratory Exam Respiratory Exam: Wheezes (Mild expiratory wheezing). absent: Rales, Rhonchi, Respiratory Distress, Stridor Additional comments: NC - Cardiovascular Exam Cardiovascular Exam: REGULAR RHYTHM, +S1, +S2. absent: Gallop, Rubs, Murmur - GI/Abdominal Exam GI & Abdominal Exam: Soft, Normal Bowel Sounds. absent: Distended, Firm, Guarding, Rigid, Tenderness, Organomegaly - Extremities Exam Extremities Exam: absent: Calf Tenderness, Pedal Edema - Neurological Exam Neurological Exam: Alert, Awake, Oriented x3 Assessment and Plan - Assessment and Plan (Free Text) Plan: 57 y/o male with COPD/asthma, BPH, HTN and DVT presents for SOB consistent with COPD exacerbation. COPD exacerbation -CXR admission 05/08: negative -EKG admission 05/08: LVH -solumedrol 60 mg q8h IVPB (05/08-05/10) --> decreased to Solumedrol 40mg Q12 (started 05/10) -Duonebs Q4 -telemetry -been on 2L NC; can start as baseline, maintain O2>92% - Consulted Dr. Verdin, pulm, recs appreciated - Started on Mucomyst Q6 PRN as per Dr. Verdin's recs - LDH 502 - HIV negative - Remains afebrile, with no leukocytosis Hx of DVT -eliquis 5 mg BID -consider PE work up Tobacco Dependence -patient desires to quit -consider nicotine patch -consider smoking cessation counseling Heroin abuse -consider psych consult for possible methadone treatment -monitor for withdrawal symptoms -HIV 1 and 2 negative -Psych consulted, Dr. Foster. Help appreciated. Hx of BPH -Home med restarted -Flomax 0.4mg pO daily Hx of HTN -Home med verified with pharmacy -Norvasc 10 mg PO daily Case discussed with Dr. No Georges, PGY1
--- NOTE | 2018-05-10 18:24 | CP.PCM.PN ---
Subjective - Date & Time of Evaluation Date of Evaluation: 05/10/18 Time of Evaluation: 17:20 - Subjective Subjective: patient seen and examined Still complaining of shortness of breath and wheezing Afebrile No chest pain Objective - Vital Signs/Intake and Output Vital Signs (last 24 hours): Temp Pulse Resp BP Pulse Ox 98.2 F 88 20 133/66 92 L 05/10/18 15:00 05/10/18 16:00 05/10/18 15:00 05/10/18 15:00 05/10/18 16:00 Intake and Output: 05/10/18 05/10/18 06:59 18:59 Intake Total 82 Balance 82 - Medications Medications: Current Medications Acetylcysteine (Acetylcysteine 20%) 4 ml INH RQ6 [facility] Albuterol/Ipratropium (Duoneb 3 Mg/0.5 Mg (3 Ml) Ud) 2.5 ml INH RQ4 [facility] Last Admin: 05/10/18 12:00 Dose: 2.5 ml Amlodipine Besylate (Norvasc) 10 mg PO DAILY [facility] Last Admin: 05/10/18 10:40 Dose: 10 mg Apixaban (Eliquis) 5 mg PO BID [facility] Last Admin: 05/10/18 17:34 Dose: 5 mg Methylprednisolone (Solu-Medrol) 40 mg IVP Q12 [facility] Tamsulosin HCl (Flomax) 0.4 mg PO DAILY [facility] Last Admin: 05/10/18 10:40 Dose: 0.4 mg - Labs Labs: 05/10/18 11:02 05/10/18 11:02 - Head Exam Head Exam: ATRAUMATIC, NORMOCEPHALIC - ENT Exam ENT Exam: Mucous Membranes Moist - Neck Exam Neck Exam: Normal Inspection - Respiratory Exam Respiratory Exam: Rhonchi, Wheezes - Cardiovascular Exam Cardiovascular Exam: REGULAR RHYTHM - GI/Abdominal Exam GI & Abdominal Exam: Soft, Normal Bowel Sounds Assessment and Plan (1) COPD with acute exacerbation Assessment & Plan: steroids Nebulizer treatment Start azithromycin spiriva Status: Acute
[2018-05-10] MEDS: Acetylcysteine 20% Inhal Soln (4ml) INH SCH (19:15)
[2018-05-10] MEDS: Azithromycin 500 MG in Sodium Chloride 0.9% 250 ML IVPB SCH (22:26)
[2018-05-11] MEDS: Albuterol-Ipratrop 3 mg / 0.5 (3 ml) UD INH SCH ×5 (03:13→19:11)
[2018-05-11] MEDS: Acetylcysteine 20% Inhal Soln (4ml) INH SCH ×3 (07:50→19:11)
[2018-05-11] MEDS: Tiotropium 18 mcg Cap For Inhalation INH SCH (07:50)
[2018-05-11] MEDS: MethylPREDNISolone 40 mg Vial IVP SCH ×2 (09:54→21:13)
--- NOTE | 2018-05-11 10:36 | CP.PCM.PN ---
Subjective - Date & Time of Evaluation Date of Evaluation: 05/11/18 Time of Evaluation: 10:36 - Subjective Subjective: Progress note for Dr. Sarabia's service Patient seen and examined at bedside. He states that he is feeling better. He denies chest pain, fevers, chills, abdominal pain, nausea, vomiting, diarrhea, leg pain or swelling. He was sleeping comfortably prior to conversation with patient. Objective - Vital Signs/Intake and Output Vital Signs (last 24 hours): Temp Pulse Resp BP Pulse Ox 98.7 F 88 20 158/87 H 95 05/11/18 07:00 05/11/18 07:40 05/11/18 07:00 05/11/18 07:00 05/11/18 07:00 - Medications Medications: Current Medications Acetylcysteine (Acetylcysteine 20%) 4 ml INH RQ6 [facility] Last Admin: 05/11/18 07:50 Dose: 4 ml Albuterol/Ipratropium (Duoneb 3 Mg/0.5 Mg (3 Ml) Ud) 2.5 ml INH RQ4 [facility] Last Admin: 05/11/18 07:50 Dose: 2.5 ml Amlodipine Besylate (Norvasc) 10 mg PO DAILY [facility] Last Admin: 05/11/18 09:54 Dose: 10 mg Apixaban (Eliquis) 5 mg PO BID [facility] Last Admin: 05/11/18 09:54 Dose: 5 mg Azithromycin 500 mg/ Sodium (Chloride) 250 mls @ 250 mls/hr IVPB Q24H [facility]; Protocol Last Admin: 05/10/18 22:26 Dose: Not Given Methylprednisolone (Solu-Medrol) 40 mg IVP Q12 [facility] Last Admin: 05/11/18 09:54 Dose: 40 mg Tamsulosin HCl (Flomax) 0.4 mg PO DAILY [facility] Last Admin: 05/11/18 09:54 Dose: 0.4 mg Tiotropium [place] (Spiriva) 18 mcg INH RQ24 [facility] - Labs Labs: 05/10/18 11:02 05/10/18 11:02 - Constitutional Appears: No Acute Distress - Head Exam Head Exam: ATRAUMATIC, NORMOCEPHALIC - Eye Exam Eye Exam: EOMI - ENT Exam ENT Exam: Mucous Membranes Dry - Respiratory Exam Respiratory Exam: Rhonchi, Wheezes (Expiratory wheezing diffusely ). absent: Rales, Respiratory Distress, Stridor - Cardiovascular Exam Cardiovascular Exam: REGULAR RHYTHM, +S1, +S2. absent: Gallop, Rubs, Murmur - GI/Abdominal Exam GI & Abdominal Exam: Soft, Normal Bowel Sounds. absent: Firm, Guarding, Rigid, Tenderness, Organomegaly - Extremities Exam Extremities Exam: absent: Calf Tenderness, Pedal Edema - Back Exam Back Exam: absent: CVA tenderness (L), CVA tenderness (R) - Neurological Exam Neurological Exam: Alert, Awake, Oriented x3 - Psychiatric Exam Psychiatric exam: Normal Affect Assessment and Plan - Assessment and Plan (Free Text) Plan: Plan: 57 y/o male with COPD/asthma, BPH, HTN and DVT presents for SOB consistent with COPD exacerbation. COPD exacerbation -CXR admission 05/08: negative -EKG admission 05/08: LVH -solumedrol 60 mg q8h IVPB (05/08-05/10) --> decreased to Solumedrol 40mg Q12 (started 05/10) -Duonebs Q4 -telemetry -been on 2L NC; can start as baseline, maintain O2>92% - Consulted Dr. Verdin, pulm, recs appreciated - Started on Acetylcysteine Q6 PRN, Azithromycin 500mg IV and Spiriva 18mcg Q24 [address] Verdin's recs - LDH 502 - HIV negative - Remains afebrile, with no leukocytosis Hx of DVT -eliquis 5 mg BID Tobacco Dependence -patient desires to quit -consider nicotine patch -consider smoking cessation counseling Heroin abuse -consider psych consult for possible methadone treatment -monitor for withdrawal symptoms -HIV 1 and 2 negative -Psych consulted, Dr. Foster. Help appreciated. Hx of BPH -Home med restarted -Flomax 0.4mg pO daily Hx of HTN -Home med verified with pharmacy -Norvasc 10 mg PO daily Case discussed with Dr. No Georges, PGY1
[2018-05-11 11:39] LABS: BASO % 0.1 % (0.0-2.0); HEMOGLOBIN 13.2 g/dL (12.0-18.0); LYMPH # 1.5 K/uL (1.0-4.3); MEAN CELL VOLUME 92.4 fL (80.0-94.0); MEAN CORPUSCULAR HEMOGLOBIN 30.8 pg (27.0-31.0); MEAN CORPUSCULAR HGB CONC 33.3 g/dL (33.0-37.0); MEAN PLATELET VOLUME 9.3 fL (7.2-11.7); MONO # 0.8 K/uL (0.0-0.8); MONO % 8.1 % (0.0-10.0); NEUT # 7.6 K/uL (1.8-7.0); NEUT % 76.8 % (50.0-75.0); RBC 4.3 Mil/uL (4.40-5.90); RED CELL DISTRIBUTION WIDTH 16.2 % (11.5-14.5); WHITE BLOOD COUNT 9.9 K/uL (4.8-10.8)
[2018-05-11 11:54] LABS: ALB/GLOB RATIO 1.2 (1.0-2.1); ALBUMIN 3.8 g/dL (3.5-5.0); ALT/SGPT 27 U/L (21-72); AST/SGOT 17 U/L (17-59); BLOOD UREA NITROGEN 29 mg/dL (9-20); CALCIUM 8.8 mg/dl (8.6-10.4); GFR NON-AFRICAN AMERICAN > 60
[2018-05-11] MEDS: Azithromycin 500 MG in Sodium Chloride 0.9% 250 ML IVPB SCH ×2 (20:24→20:26)
[2018-05-12] MEDS: Albuterol-Ipratrop 3 mg / 0.5 (3 ml) UD INH SCH ×3 (01:20→12:32)
[2018-05-12] MEDS: Acetylcysteine 20% Inhal Soln (4ml) INH SCH ×2 (01:20→07:58)
--- NOTE | 2018-05-12 07:54 | CP.PCM.PN ---
Objective - Vital Signs/Intake and Output Vital Signs (last 24 hours): Temp Pulse Resp BP Pulse Ox 98.3 F 71 18 150/92 H 99 05/11/18 23:20 05/12/18 03:30 05/11/18 23:20 05/11/18 23:20 05/11/18 23:20 Intake and Output: 05/12/18 05/12/18 06:59 18:59 Intake Total 300 Balance 300 - Medications Medications: Current Medications Acetylcysteine (Acetylcysteine 20%) 4 ml INH RQ6 [facility] Last Admin: 05/12/18 01:20 Dose: Not Given Albuterol/Ipratropium (Duoneb 3 Mg/0.5 Mg (3 Ml) Ud) 2.5 ml INH RQ4 [facility] Last Admin: 05/12/18 01:20 Dose: Not Given Amlodipine Besylate (Norvasc) 10 mg PO DAILY [facility] Last Admin: 05/11/18 09:54 Dose: 10 mg Apixaban (Eliquis) 5 mg PO BID [facility] Last Admin: 05/11/18 17:57 Dose: 5 mg Azithromycin 500 mg/ Sodium (Chloride) 250 mls @ 250 mls/hr IVPB Q24H [facility]; Protocol Last Admin: 05/11/18 20:26 Dose: Not Given Methylprednisolone (Solu-Medrol) 40 mg IVP Q12 [facility] Last Admin: 05/11/18 21:13 Dose: 40 mg Tamsulosin HCl (Flomax) 0.4 mg PO DAILY [facility] Last Admin: 05/11/18 09:54 Dose: 0.4 mg Tiotropium [place] (Spiriva) 18 mcg INH RQ24 [facility] Last Admin: 05/11/18 07:50 Dose: Not Given - Labs Labs: 05/11/18 11:25 05/11/18 11:25
[2018-05-12] MEDS: Tiotropium 18 mcg Cap For Inhalation INH SCH (07:59)
[2018-05-12 08:18] VITALS: BP 126/80; PULSE 78; RESP 20; TEMP 98; O2SAT 96
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
[2018-05-12 11:18] LABS: BASO % 0.2 % (0.0-2.0); HEMOGLOBIN 13.5 g/dL (12.0-18.0); LYMPH # 0.9 K/uL (1.0-4.3); LYMPH % 10.7 % (20.0-40.0); MEAN CELL VOLUME 91.9 fL (80.0-94.0); MEAN CORPUSCULAR HEMOGLOBIN 30.2 pg (27.0-31.0); MEAN CORPUSCULAR HGB CONC 32.9 g/dL (33.0-37.0); MEAN PLATELET VOLUME 9.3 fL (7.2-11.7); MONO # 0.4 K/uL (0.0-0.8); MONO % 4.5 % (0.0-10.0); NEUT # 7.3 K/uL (1.8-7.0); NEUT % 84.6 % (50.0-75.0); RBC 4.47 Mil/uL (4.40-5.90); WHITE BLOOD COUNT 8.7 K/uL (4.8-10.8)
[2018-05-12 11:49] LABS: ALB/GLOB RATIO 1.2 (1.0-2.1); ALBUMIN 3.8 g/dL (3.5-5.0); ALT/SGPT 20 U/L (21-72); AST/SGOT 17 U/L (17-59); BLOOD UREA NITROGEN 27 mg/dL (9-20); CALCIUM 8.8 mg/dl (8.6-10.4); GFR NON-AFRICAN AMERICAN > 60
[2018-05-12] MEDS: MethylPREDNISolone 40 mg Vial IVP SCH (12:05)
--- NOTE | 2018-05-12 17:56 | CP.PCM.PN ---
Subjective - Date & Time of Evaluation Date of Evaluation: 05/12/18 Time of Evaluation: 11:00 - Subjective Subjective: patient seen and examined Clinically much improved afebrile No chest pain Objective - Vital Signs/Intake and Output Vital Signs (last 24 hours): Temp Pulse Resp BP Pulse Ox 98.0 F 78 20 126/80 96 05/12/18 07:20 05/12/18 07:20 05/12/18 07:20 05/12/18 07:20 05/12/18 07:20 Intake and Output: 05/12/18 05/12/18 06:59 18:59 Intake Total 300 Balance 300 - Labs Labs: 05/12/18 11:09 05/12/18 11:09 Assessment and Plan (1) COPD with acute exacerbation Status: Acute
== END 2018-05-12 15:45 | disposition home or self-care (01) | DRG 140 ==
LOC: C.ER 14:44 → C.9E 17:58 → C.6T 18:19 → OBSVTOIN 05-10 17:52
PROVIDERS: ADMIT Internal Medicine; ATTEND Internal Medicine
DX: J44.1 Chronic obstructive pulmonary disease with (acute) exacerbation (principal); I12.9 Hypertensive chronic kidney disease with stage 1 through stage 4 chronic kidney disease, or unspecified chronic kidney disease; E78.00 Pure hypercholesterolemia, unspecified; F11.10 Opioid abuse, uncomplicated; N40.1 Benign prostatic hyperplasia with lower urinary tract symptoms; N18.9 Chronic kidney disease, unspecified; Z86.711 Personal history of pulmonary embolism; Z79.01 Long term (current) use of anticoagulants; F17.200 Nicotine dependence, unspecified, uncomplicated

== ENCOUNTER 2018-06-03 15:03 | Emergency (ER) | payer MEDICAID ==
[2018-06-03 15:03] VITALS: BMI 29.0
[2018-06-03] MEDS ORDERED: Albuterol-Ipratrop 3 mg / 0.5 (3 ml) UD ONE ×2 (15:38→16:19)
[2018-06-03 15:44] VITALS: TEMP 98.1
[2018-06-03] MEDS ORDERED: Albuterol-Ipratrop 3 mg / 0.5 (3 ml) UD INH STA (16:05)
--- NOTE | 2018-06-03 16:56 | C.PDOC ---
History Of Present Illness 57 year old male, whose past medical history includes COPD, presents to the ED for evaluation of shortness of breath and wheezing. Patient admits to persistent heroin abuse and smoking. Patient lives in [facility] in [place] and was seen at [facility] for heroin overdose on 05/24. Patient denies suicidal/homicidal ideation at this time. Time Seen by Provider: 06/03/18 15:59 Chief Complaint (Nursing): Shortness Of Breath History Per: Patient History/Exam Limitations: no limitations Onset/Duration Of Symptoms: Hrs Current Symptoms Are (Timing): Still Present Current Respiratory Medications: See Home Med List Additional History Per: Patient Past Medical History Reviewed: Historical Data, Nursing Documentation, Vital Signs Vital Signs: Last Vital Signs Temp 98.1 F 06/03/18 15:41 Pulse 84 06/03/18 15:41 Resp 20 06/03/18 16:00 BP 166/87 H 06/03/18 15:41 Pulse Ox 97 06/03/18 16:00 - Medical History PMH: Arthritis, Asthma, Bronchitis, COPD, Deep Vein Thrombosis, Gastrointestinal Ulcer, Gall Bladder Disease, HTN, Hypercholesterolemia, Pulmonary Embolism, Chronic Kidney Disease Denies: Alzheimer's Disease, Anemia, Atrial Fibrillation, Cardia Arrhythmia, CHF, Dementia, Emphysema, HIV, Hyperthyroidism, Hypothyroidism, Kidney Stones, Migraine, Mitral Valve Prolapse, Multiple Sclerosis, Parkinson's Disease, Peripheral Edema, Pneumonia, Seizures, Sickle Cell Disease, Sleep Apnea, TIA Surgical History: Hernia Repair Denies: Pacemaker - [facility] Procedures INSERTION OF INTRALUM DEV INTO INF VENA CAVA, PERC APPROACH (08/29/15) INTRODUCE OF OTH THERAP SUBST INTO RESP TRACT, VIA OPENING (06/07/15) INTRODUCTION OF ANTI-INFLAM INTO RESP TRACT, VIA OPENING (04/30/18) INTRODUCTION OF SERUM/TOX/VACCINE INTO MUSCLE, PERC APPROACH (06/07/17) NEBULIZER THERAPY (02/27/15) Family History: States: Unknown Family Hx - Social History Hx Tobacco Use: Yes (smokes daily) Hx Alcohol Use: Yes Hx Substance Use: Yes (Use Heroin) - Immunization History Hx Tetanus Toxoid Vaccination: Yes Hx Influenza Vaccination: Yes (03/2018) Hx Pneumococcal Vaccination: Yes (2017) Review Of Systems Respiratory: Positive for: Shortness of Breath, Wheezing Psych: Positive for: Other (persistent heroin abuse ). Negative for: Suicidal ideation Physical Exam - Physical Exam Appears: Non-toxic, No Acute Distress Skin: Normal Color, Warm, Dry Head: Atraumatic, Normacephalic Eye(s): bilateral: Other (pinpoint pupils ) Oral Mucosa: Moist Neck: Supple Chest: Symmetrical, No Deformity, No Tenderness Cardiovascular: Rhythm Regular, No Murmur Respiratory: Rhonchi (mild, scattered ), Wheezing (mild, scattered ), Other (speaking in full sentences in a loud voice ) Gastrointestinal/Abdominal: Soft, No Tenderness, No Guarding, No Rebound Extremity: Normal ROM, Capillary Refill (less than 2 seconds ) Neurological/Psych: Oriented x3, Normal Speech, Normal Cognition ED Course And Treatment O2 Sat by Pulse Oximetry: 97 Pulse Ox Interpretation: Normal Progress Note: Albuterol INH and Prednisone PO given. Medical Decision Making Medical Decision Making: persistent heroine abuse, smoking 1 ppd, copd @ baseline has neb machine and plenty of duoneb liquid ampules @ home ([facility] in [facility], where he can take treatments 24 hours/day as needed) curbing cigarettes as much as possible Continue to seek drug treatment programs to stop heroine abuse [facility] to get pre-screened for Heroine Detox Programs and Rehab programs. Disposition Doctor Will See Patient In The: Office Counseled Patient/Family Regarding: Studies Performed, Diagnosis - Disposition Referrals: [facility] [Outside] [facility] [Outside] [facility] [Outside] [facility] [Outside] [facility] [Outside] Disposition: HOME/ ROUTINE Disposition Time: 16:56 Condition: GOOD Additional Instructions: persistent heroine abuse, smoking 1 ppd, copd @ baseline has neb machine and plenty of duoneb liquid ampules @ home ([facility] in [facility], rooming house, where he can take treatments 24 hours/day as needed) May do up to SEVEN (7) Treatments w Duoneb liquid with TWO (2) ampules per treatment each day. curbing cigarettes as much as possible Continue to seek drug treatment programs to stop heroine abuse Follow-[facility] to get pre-screened for Heroine Detox Programs and Rehab programs. Prescriptions: Albuterol/Ipratropium [Duoneb 3 MG/3 Ml-0.5 MG/3 Ml 3 Ml] 6 ml IH Q4H PRN #100 neb PRN Reason: asthma Instructions: Chronic Obstructive Pulmonary Disease (COPD), Including Emphysema, Opioid Use Disorder Forms: [facility] [facility] ([place]) - Clinical Impression Clinical Impression: Opiate abuse, continuous, COPD (chronic obstructive pulmonary disease) - Scribe Statement The provider has reviewed the documentation as recorded by the Scribe (Melissa Trejo) Provider Attestation: All medical record entries made by the Scribe were at my direction and personally dictated by me. I have reviewed the chart and agree that the record accurately reflects my personal performance of the history, physical exam, medical decision making, and the department course for this patient. I have also personally directed, reviewed, and agree with the discharge instructions and disposition.
[2018-06-03 17:34] VITALS: BP 157/81; PULSE 107; RESP 18
[2018-06-03 19:23] VITALS: O2SAT 97
== END 2018-06-03 17:32 | disposition home or self-care (01) ==
LOC: C.ER 15:03
DX: J44.9 Chronic obstructive pulmonary disease, unspecified (principal); F11.10 Opioid abuse, uncomplicated; E78.00 Pure hypercholesterolemia, unspecified; I12.9 Hypertensive chronic kidney disease with stage 1 through stage 4 chronic kidney disease, or unspecified chronic kidney disease; N18.9 Chronic kidney disease, unspecified; F17.200 Nicotine dependence, unspecified, uncomplicated

== ENCOUNTER 2018-07-04 21:52 | Emergency (ER) | payer MEDICAID ==
[2018-07-04 21:52] VITALS: BMI 29.0
[2018-07-04 22:08] VITALS: PULSE 101; O2SAT 93
--- NOTE | 2018-07-04 22:58 | C.PDOC ---
History Of Present Illness 57 yo male, hx of herioin abuse, presnets found using herioin in [facility]. pt with numerous visits for substance abuse. upon my assment. pt easily arousable, not bradypneic. no si hi. long standing h/o of copd. Time Seen by Provider: 07/04/18 22:51 Chief Complaint (Nursing): Substance Abuse Past Medical History Reviewed: Historical Data, Nursing Documentation, Vital Signs Vital Signs: Last Vital Signs Temp 98.1 F 07/04/18 22:05 Pulse 101 H 07/04/18 22:05 Resp 20 07/04/18 22:05 BP 128/82 07/04/18 22:05 Pulse Ox 93 L 07/04/18 22:05 - Medical History PMH: Arthritis, Asthma, Bronchitis, COPD, Deep Vein Thrombosis, Gastrointestinal Ulcer, Gall Bladder Disease, HTN, Hypercholesterolemia, Pulmonary Embolism, Chronic Kidney Disease Denies: Alzheimer's Disease, Anemia, Atrial Fibrillation, Cardia Arrhythmia, CHF, Dementia, Emphysema, HIV, Hyperthyroidism, Hypothyroidism, Kidney Stones, Migraine, Mitral Valve Prolapse, Multiple Sclerosis, Parkinson's Disease, Peripheral Edema, Pneumonia, Seizures, Sickle Cell Disease, Sleep Apnea, TIA Surgical History: Hernia Repair Denies: Pacemaker - [facility] Procedures INSERTION OF INTRALUM DEV INTO INF VENA CAVA, PERC APPROACH (08/29/15) INTRODUCE OF OTH THERAP SUBST INTO RESP TRACT, VIA OPENING (06/07/15) INTRODUCTION OF ANTI-INFLAM INTO RESP TRACT, VIA OPENING (04/30/18) INTRODUCTION OF SERUM/TOX/VACCINE INTO MUSCLE, PERC APPROACH (06/07/17) NEBULIZER THERAPY (02/27/15) Family History: States: Unknown Family Hx - Social History Hx Tobacco Use: Yes (smokes daily) Hx Alcohol Use: No Hx Substance Use: Yes - Immunization History Hx Tetanus Toxoid Vaccination: Yes Hx Influenza Vaccination: Yes (03/2018) Hx Pneumococcal Vaccination: Yes (2017) Physical Exam - Physical Exam Appears: Well, No Acute Distress, Other (easily arousable) Skin: Normal Color, Warm, Dry Head: Atraumatic, Normacephalic Eye(s): bilateral: Normal Inspection, EOMI, Other (constricted) Nose: Normal Throat: Normal Neck: Normal Cardiovascular: Rhythm Regular Respiratory: Normal Breath Sounds Gastrointestinal/Abdominal: Normal Exam Back: Normal Inspection Extremity: Normal ROM Neurological/Psych: Oriented x3, Normal Speech, Normal Cognition ED Course And Treatment O2 Sat by Pulse Oximetry: 93 Medical Decision Making Medical Decision Making: pt s/p overdose. observed in er, awake alert, i nad. labs neg. steady gait no need for narcan stable for dc. Disposition - Disposition Disposition: HOME/ ROUTINE Disposition Time: 12:30 Condition: STABLE Instructions: Narcotic Overdose Forms: [facility] ([place]) - Clinical Impression Clinical Impression: Opiate overdose
[2018-07-05 00:36] VITALS: BP 144/88; RESP 18; TEMP 98.7
== END 2018-07-05 01:23 | disposition home or self-care (01) ==
LOC: C.ER 21:52
DX: T40.1X1A Poisoning by heroin, accidental (unintentional), initial encounter (principal); Y92.89 Other specified places as the place of occurrence of the external cause